=== PATIENT | male | born 1940 | race Caucasian/White ===

== ENCOUNTER 2017-11-08 08:49 | Observation (INO) | payer MEDICARE, OTHER ==
[2017-11-08] MEDS ORDERED: ceFAZolin 2 GM PREMIX (*) 2 GM/50 ML BAG IVPB ONE ×2 (10:00→12:30)
[2017-11-08] MEDS ORDERED: ceFAZolin VIAL 1 GM in NS *SYRINGE * * 10 ML ONE (10:00)
[2017-11-08] MEDS ORDERED: Diazepam TAB(*) 5 MG ONE (10:03)
[2017-11-08] MEDS ORDERED: Lidocaine 1% INJ* 10 MG/ML 30 ML SDV ONE (10:17)
[2017-11-08] MEDS ORDERED: Flumazenil* 0.1 MG/ML 5 ML MDV ONE (10:17)
[2017-11-08] MEDS ORDERED: Naloxone* 0.4 MG/ML 1 ML VIAL ONE (10:17)
[2017-11-08] MEDS ORDERED: Midazolam* 1 MG/ML 5 ML VIAL (5 MG) ONE (10:17)
[2017-11-08] MEDS ORDERED: fentaNYL* 50 MCG/ML 2 ML VIAL (100 MCG VIAL) ONE (10:17)
[2017-11-08] MEDS ORDERED: oxyCODONE/Acetamin 5/325 MG* TAB PO PRN (11:26)
[2017-11-08] MEDS ORDERED: ceFAZolin 1 GM VIAL(*) 1 GM in NS 0.9% 50 ML* 50 ML IVPB SCH (12:00)
[2017-11-08] MEDS ORDERED: ceFAZolin 1 GM VIAL(*) 2 GM in NS 0.9% 100 ML* 100 ML IVPB ONE (12:04)
--- NOTE | 2017-11-08 14:16 | RAD ---
INDICATION: Status post device implant. COMPARISON: Comparison is made with a prior study from October 07, 2017. TECHNIQUE: A portable view of the chest was obtained. FINDINGS: The patient is status post placement of a transvenous pacemaker. The heart is within normal limits in size. Mediastinal contours appear normal. The lungs are clear. No pleural effusion or pneumothorax is seen. IMPRESSION: STATUS POST TRANSVENOUS CARDIAC PACEMAKER PLACEMENT, NO EVIDENCE FOR ACUTE FINDING.
[2017-11-08] MEDS: Acetaminophen TAB* 325 MG PO PRN (19:00)
[2017-11-08] MEDS: ceFAZolin 1 GM in Dextrose (*) 1 GM/50 ML BAG IVPB SCH (20:22)
--- NOTE | 2017-11-09 02:05 | OP ---
CC: Dr. Vidal Walker * DATE OF OPERATION: 11/08/17 - ROOM #441 DATE OF : 36 SURGEON: Yevgeniy Ulloa MD ANESTHESIA: Local anesthesia with conscious sedation. PRE-OP DIAGNOSIS: Atrial fibrillation, tachybrady syndrome. POST-OP DIAGNOSIS: Atrial fibrillation, tachybrady syndrome. OPERATIVE PROCEDURE: Single chamber pacemaker implantation. ESTIMATED BLOOD LOSS: Nil. COMPLICATIONS: None. INDICATIONS: The patient is a 77-year-old gentleman with a history of chronic atrial fibrillation. The patient has had poor heart rate control and has been intolerant of beta-blockers and calcium channel blockers in the past. Permanent pacemaker was recommended for further therapies for heart rate control. DESCRIPTION OF PROCEDURE: The patient was brought to the operating room in a fasting state. Informed consent had been obtained prior to the procedure. All labs had been reviewed. The patient was placed supine on the procedure table. His left deltopectoral was cleaned and draped in the usual fashion. 1% lidocaine was used for local anesthesia. The left axillary vein was entered by a modified Seldinger technique and a guidewire was placed. A 3 cm incision was made in the pectoral fascia and blunt dissection was carried to the pectoral fascia. A small pocket was fashioned for the pacemaker. Over the guidewire, a 7-Malagasy sheath introducer was placed through which a right ventricular lead was advanced to the RV apex. The right ventricular lead is a Medtronic model 5076, serial #[id number]. It had an R-wave sensitivity of 5, impedance 717 ohms , threshold 0.7 volts at 0.5 milliseconds. The ventricular lead was then sutured to the pectoral fascia using 0 silk. The pocket was flushed with antibiotic infused normal saline. A generator was attached to the ventricular lead. The generator is a Medtronic model A3SR01, serial #[id number]. The device was placed into the pocket. The surgical incision was closed in 3 layers. The patient was returned to holding area in stable condition. [id number]/[facility] #: [id number] MTDMichele
[2017-11-09] MEDS: Acetaminophen TAB* 325 MG PO PRN (02:58)
[2017-11-09] MEDS: ceFAZolin 1 GM in Dextrose (*) 1 GM/50 ML BAG IVPB SCH (04:28)
[2017-11-09] MEDS ORDERED: Omeprazole CAP* 20 MG PO SCH (07:30)
[2017-11-09 08:11] VITALS: BP 125/78
[2017-11-09] MEDS ORDERED: Aspirin EC Low Dose* 81 MG TAB.EC PO SCH (08:30)
[2017-11-09] MEDS ORDERED: Metoprolol Succinate XL TAB* 25 MG PO SCH (09:00)
[2017-11-09] MEDS ORDERED: Docusate CAP* 100 MG PO SCH (09:00)
--- NOTE | 2017-11-09 09:21 | RAD ---
HISTORY: Status post device implant COMPARISONS: November 08, 2017, CT of the chest dated October 07, 2017 VIEWS: 4: Frontal dual-energy and lateral views of the chest. FINDINGS: CARDIOMEDIASTINAL SILHOUETTE: The cardiomediastinal silhouette is normal. HARRIET: The harriet are normal. PLEURA: The costophrenic angles are sharp. No pleural abnormalities are noted. LUNG PARENCHYMA: The lungs are clear. ABDOMEN: The upper abdomen is clear. There is no subphrenic gas. BONES AND SOFT TISSUES: There is stable chronic compression deformity of the thoracic spine OTHER: A left-sided pacemaker is noted. IMPRESSION: NO ACTIVE CARDIOPULMONARY DISEASE.
--- NOTE | 2017-11-09 12:39 | DS ---
CC: Dinah Stahl NP; Dr. Vidal Walker * DATE OF ADMISSION: 11/08/2017. DATE OF DISCHARGE: 11/09/2017. INDICATION FOR ADMISSION: Single chamber pacemaker implantation, atrial fibrillation. HISTORY OF PRESENT ILLNESS: Please see admission history and physical for details of the patient's presentation. The patient has a history of chronic atrial fibrillation with poor heart rate control. Permanent pacemaker was recommended for maximization of medical therapy and other avenues of rate control. The patient was brought in to the hospital. He went to the operating room and had a single chamber pacemaker inserted under conscious sedation. The procedure went without difficulty. The patient was observed overnight. He had no difficulties overnight. This morning the dressing was changed and the incision site looks stable. The patient has no complaints and will be discharged home. The patient had a chest x-ray today which demonstrated normal placement of the single chamber pacemaker. There was no evidence of pneumothorax. His device was interrogated today. It is a single chamber Medtronic pacemaker. It is set at a low rate of 60. It had an R wave sensitivity of 7, impendence 513 ohms, threshold 0.5 volts at 0.4 msec. He is ventricularly paced 8 percent of the time. No other abnormality rhythms detected. DISCHARGE MEDICATIONS: 1. Digoxin 125 mcg 4 days a week. 2. Crestor 5 mg a day. 3. Potassium 20 mEq a day. 4. Toprol XL 25 mg once a day. 5. Aspirin 81 mg a day. 6. Colace 100 mg a day. 7. Vitamin C 500 mg a day. 8. Multiple other supplements. 9. Pantoprazole 40 mg a day. 10. Tylenol 325 as needed. 11. Coumadin as directed. He will restart his Coumadin today. 12. Coenzyme Q10 200 mg a day. 13. Magnesium 400 mg a day. ALLERGIES: No known drug allergies. PHYSICAL EXAMINATION: Vital Signs: Heart rate is 80 beats per minute, blood pressure 130/72, respiratory rate 16, he is afebrile. Lungs: Clear to auscultation. Cardiac exam: S1, S2 without any murmurs, rubs or gallops. Lungs: Clear to auscultation. Extremities: Show no edema. His pacer site is clean, dry and intact. There is no hematoma. There is no erythema. There is no ecchymosis when the dressing was changed. DISPOSITION: The patient will be discharged home. He is to follow-up with me in one week. [id number]/[facility] #: [id number] DAKSHA
[2017-11-09] MEDS ORDERED: Digoxin TAB* 0.125 MG PO SCH (17:00)
== END 2017-11-09 10:41 | disposition home or self-care (01) ==
LOC: CHICATH 08:49 → MEDTELE 11:26
PROVIDERS: ADMIT Specialist; ATTEND Specialist
DX: I48.2 Chronic atrial fibrillation (principal); K21.9 Gastro-esophageal reflux disease without esophagitis; E78.00 Pure hypercholesterolemia, unspecified; Z79.899 Other long term (current) drug therapy; F41.9 Anxiety disorder, unspecified; M10.9 Gout, unspecified; E11.9 Type 2 diabetes mellitus without complications; I49.5 Sick sinus syndrome; Z86.73 Personal history of transient ischemic attack (TIA), and cerebral infarction without residual deficits
CPT/HCPCS: 33207; 71010; 71020; 93005; 99156; 99157; A9270-GY; C1785; C1898; G0378; J0690; J2250; J2310; J3010

== ENCOUNTER 2018-10-11 10:33 | Emergency (ER) | payer MEDICARE, OTHER ==
[2018-10-11] MEDS ORDERED: NS 0.9% 1000 ML*IV.FLUID IV ONE (10:44)
--- NOTE | 2018-10-11 11:02 | ED ---
Complex/Multi-Sys Presentation - HPI Summary HPI Summary: Patient is a 78 y/o M w/ c/o chills, weakness, "pressure" at left chest and confusion/disorientation. Patient's reports that patient was having "convulsive" chills three days ago in the evening. Patient's got him a heating pad which resolved Sx. reports that patient slept a lot the following day and had a decreased appetite. Two days ago in the evening, patient was noted to have chills once more and to be confused/disoriented. The following day (yesterday) patient was reported to have been better. This morning , patient awoke with palor, weakness, and difficulty walking. He was seen at his PCP this morning, who sent him to the ED. Cough, headache, abdominal pain are denied. He denies chest pain but states he has a "pressure" at his left chest. He is also noted to have a red "bump" at the top of his head by his . Patient has pacemaker, states he is in afib constantly. No Hx of HTN is reported, but patient is on BP meds to help control afib. PSHx of prostate removal 20 years ago for cancer. Patient was negative for flu when swabbed at PCP. On triage, pain is denied. Nothing is noted to aggravate/alleviate Sx. Home medications and allergies are reviewed. - History Of Current Complaint Chief Complaint: EDFluSymptoms Time Seen by Provider: 10/11/18 10:44 Hx Obtained From: Patient Onset/Duration: Lasting Days - onset three days ago, Still Present Timing: Constant, Days - three days Severity Currently: None - pain denied Location: Negative Aggravating Factor(s): nothing Alleviating Factor(s): nothing Associated Signs And Symptoms: Positive: Confusion, Other - POSITIVE: chills, weakness, increased sleep, decreased appetite, "pressure" at left chest, "bump" at top of head, palor, difficulty walking. Negative: Headache, Cough, Chest Pain, Abdominal Pain - Allergies/Home Medications Allergies/Adverse Reactions: Allergies Allergy/AdvReac Type Severity Reaction Status Date / Time No Known Allergies Allergy Verified 10/11/18 10:40 Home Medications: Home Medications Docusate CAP* [Colace Cap*] 100 mg PO EVERY OTHER DAY PRN 10/11/18 [History Confirmed 10/11/18] Glucosamine/Chondro Cheung A/C/Mn [Glucosamine Chondroitin C] 2 cap PO DAILY [History Confirmed 10/11/18] Metoprolol Succinate XL TAB* [Toprol XL TAB*] 12.5 mg PO QAM 10/11/18 [History Confirmed 10/11/18] Potassium Chlor TAB* [Klor Con ER TAB*] 20 meq PO DAILY 10/11/18 [History Confirmed 10/11/18] Sildenafil (NF) [Viagra (NF)] 50 mg PO DAILY PRN 10/11/18 [History Confirmed ] Ubidecarenone [Co Q10] 200 mg PO DAILY 10/11/18 [History Confirmed 10/11/18] Warfarin TAB(*) [Coumadin TAB(*)] 2.5 mg PO DAILY 10/11/18 [History Confirmed ] Zinc Amino Acid Chelate [Zinc] 50 mg PO DAILY 10/11/18 [History Confirmed ] PMH/Surg Hx/FS Hx/Imm Hx Endocrine/Hematology History: Reports: Hx Anticoagulant Therapy Denies: Hx Diabetes Cardiovascular History: Reports: Hx Angina, Hx Hypercholesterolemia, Hx Syncope , Other Cardiovascular Problems/Disorders - AFIB Denies: Hx Congestive Heart Failure, Hx Coronary Artery Disease, Hx Hypertension, Hx Myocardial Infarction, Hx Pacemaker/ICD, Hx Valvular Heart Disease Respiratory History: Reports: Hx Pneumonia - x3 Denies: Hx Asthma, Hx Chronic Obstructive Pulmonary Disease (COPD), Other Respiratory Problems/Disorders - DENIES GI History: Reports: Hx Gastroesophageal Reflux Disease, Hx Gastrointestinal Bleed History: Reports: Other Problems/Disorders - prostatectomy Denies: Hx Dialysis, Hx Renal Disease Musculoskeletal History: Reports: Hx Arthritis, Hx Back Problems, Hx Gout - one bout of gout Sensory History: Reports: Hx Contacts or Glasses Denies: Hx Cataracts, Hx Vision Problem, Hx Deafness, Hx Hearing Aid, Hx Hearing Problem Opthamlomology History: Reports: Hx Contacts or Glasses Denies: Hx Cataracts, Hx Vision Problem Neurological History: Reports: 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 prostate cancer - 1995 Hx Chemotherapy: No Hx Radiation Therapy: Yes - VOCAL CHORD POLYPS - Surgical History Surgery Procedure, Year, and Place: PROSTATECTOMY 1995,. TONSILLECTOMY as a child. Vocal cord polyps removed 1980 Hx Anesthesia Reactions: No - Immunization History Date of Tetanus Vaccine: PT STATES UNSURE Date of Influenza Vaccine: NONE Infectious Disease History: No Infectious Disease History: Denies: Traveled Outside the [place] in Last 30 Days - Family History Known Family History: Positive: Cardiac Disease - father: CAD - Social History Alcohol Use: Occasionally Alcohol Amount: 1-2 beers occasionally Hx Substance Use: No Substance Use Type: Reports: None Hx Tobacco Use: No Smoking Status (MU): Never Smoked Tobacco Review of Systems Positive: Chills, Other - POSITIVE: increased sleep, palor, weakness, difficulty walking Positive: Other - left sided chest pressure . Negative: Chest Pain Negative: Cough Positive: Other - POSITIVE: decreased appetite . Negative: Abdominal Pain Positive: Other - POSITIVE: red "bump" at top of head Neurological: Other - POSITIVE: confusion/disorientation Negative: Headache All Other Systems Reviewed And Are Negative: Yes Physical Exam - Summary Physical Exam Summary: Appearance: Well-appearing, Well-nourished, lying in bed comfortably Skin: Warm, dry, no obvious rash Eyes: sclera anicteric, no conjunctival pallor ENT: mucous membranes moist, pharynx appears normal Neck: Supple, nontender Respiratory: Clear to auscultation, no signs of respiratory distress Cardiovascular: Patient has rapid and irregular pulse. No murmurs. Normal distal pulses in tibial and radial bilaterally. Abdomen: Soft, nontender, normal active bowel sounds present Musculoskeletal: Normal, Strength/ROM Intact Neurological: A&Ox3, awake and alert, mentation is normal, speech is fluent and appropriate Psychiatric: affect is normal, does not appear anxious or depressed Triage Information Reviewed: Yes Vital Signs On Initial Exam: Initial Vitals Temp Pulse Resp BP Pulse Ox 99.7 F 109 18 92/51 96 10/11/18 10:37 10/11/18 10:37 10/11/18 10:37 10/11/18 10:37 10/11/18 10:37 Vital Signs Reviewed: Yes Diagnostics - Vital Signs Vital Signs Temp Pulse Resp BP Pulse Ox 10/11/18 10:51 95 11/13/18 10:37 99.7 F 109 18 92/51 96 - Laboratory Result Diagrams: 10/11/18 11:15 10/11/18 11:15 Lab Statement: Any lab studies that have been ordered have been reviewed, and results considered in the medical decision making process. - Radiology CXR Radiology Interpretation Completed By: Radiologist Summary of Radiographic Findings: No evidence for acute disease. This report was reviewed by ED physician. Re-Evaluation - Re-Evaluation First Eval Re-Evaluation Time: 13:50 Complex Multi-Symp Course/Dx Course Of Treatment: Patient is a 78 y/o M w/ c/o chills, weakness, "pressure" at left chest and confusion/disorientation. Patient's reports that patient was having "convulsive" chills three days ago in the evening. Patient's got him a heating pad which resolved Sx. reports that patient slept a lot the following day and had a decreased appetite. Two days ago in the evening, patient was noted to have chills once more and to be confused/disoriented. The following day (yesterday) patient was reported to have been better. This morning , patient awoke with palor, weakness, and difficulty walking. He was seen at his PCP this morning, who sent him to the ED. Cough, headache, abdominal pain are denied. He denies chest pain but states he has a "pressure" at his left chest. Patient has pacemaker, states he is in afib constantly. No Hx of HTN is reported, but patient is on BP meds to help control afib. Patient was negative for flu when swabbed at PCP. On physical exam, patient is noted to have rapid and irregular pulse. During ED course, patient received fluids. UA showed ascorbic acid. Labs showed trop 0.01, Alk phos 148, ALT 78, AST 78, lactic acid 1.6, glucose 121, BUN 28, sodium 134, WBC 5.9. CXR showed no acute disease. Results of labs and tests were discussed with patient, patient agreeable with discharge. Clinically, he does not appear very ill. His workup has not disclose any evidence of severe infection or sepsis. I believe he is safe for discharge at this point with a tentative diagnosis of viral syndrome. - Diagnoses Provider Diagnoses: Viral syndrome Discharge - Sign-Out/Discharge Documenting (check all that apply): Patient Departure - discharge - Discharge Plan Condition: Stable Disposition: HOME Patient Education Materials: Viral Syndrome (ED) Referrals: Marco Antonio Webster MD [Primary Care Provider] - 2 Days (if still having symptoms ) - Billing Disposition and Condition Condition: STABLE Disposition: Home - Attestation Statements Document Initiated by Coreyibe: Yes Documenting Scribe: Hung Lange Provider For Whom Venu is Documenting (Include Credential): Naeem Crenshaw MD Scribe Attestation: Hung Velázquez , scribed for Naeem Crenshaw MD on 10/12/18 at 1136. Scribe Documentation Reviewed: Yes Provider Attestation: The documentation as recorded by the Hung beltrán accurately reflects the service I personally performed and the decisions made by me, Naeem Crenshaw MD
[2018-10-11 11:34] LABS: Hematocrit 42 % (42-52); Hemoglobin 14.3 g/dl (14.0-18.0); Mean Corpuscular HGB Conc 34 g/dl (31-36); Mean Corpuscular Hemoglobin 31 pg (27-31); Mean Corpuscular Volume 93 fL (80-94); Mean Platelet Volume 8.5 fL (7.4-10.4); Platelet Count 139 10^3/ul (150-450); Red Blood Count 4.58 10^6/ul (4.00-5.40); Red Cell Distribution Width 14 % (10.5-15); White Blood Count 5.9 10^3/ul (3.5-10.8)
[2018-10-11 11:36] LABS: INR 1.42 (0.77-1.02)
[2018-10-11 12:22] LABS: EGFR Non-African American 63.7 (>60)
[2018-10-11 12:27] LABS: ABS Basophils 0.1 10^3/ul (0-0.2); ABS Eosinophils 0 10^3/ul (0-0.6); ABS Lymphocytes 1.3 10^3/ul (1.0-4.8); ABS Monocytes 0.5 10^3/ul (0-0.8); ABS Neutrophils 4.1 10^3/ul (1.5-7.7)
[2018-10-11 12:29] LABS: Monocytes % 3 % (0-7)
[2018-10-11 13:42] LABS: Urine Appearance Clear; Urine Blood Negative (Negative); Urine Color Yellow; Urine Ketones Negative (Negative); Urine Protein Negative (Negative); Urine Specific Gravity 1.016 (1.010-1.030); Urine Urobilinogen Negative (Negative)
[2018-10-11 15:58] VITALS: BP 128/80
== END 2018-10-11 14:30 | disposition home or self-care (01) ==
LOC: ED 10:33
DX: B34.9 Viral infection, unspecified (principal); E78.00 Pure hypercholesterolemia, unspecified; K21.9 Gastro-esophageal reflux disease without esophagitis; Z85.819 Personal history of malignant neoplasm of unspecified site of lip, oral cavity, and pharynx; Z85.46 Personal history of malignant neoplasm of prostate; F32.9 Major depressive disorder, single episode, unspecified; I48.91 Unspecified atrial fibrillation
CPT/HCPCS: 36415; 71045; 80053; 81003; 83605; 84484; 85025; 85060; 85610; 85730; 87040; 96361; 99283

== ENCOUNTER 2018-10-12 15:51 | Inpatient (IN) | payer MEDICARE, OTHER ==
--- NOTE | 2018-10-12 16:51 | ED ---
Complex/Multi-Sys Presentation - HPI Summary HPI Summary: The pt is a n 78 y/o male accompanied by his presenting to [facility] c/o a fall yesterday. As per the , he fell in the bathroom at 2330 hrs landing on his L side. The pt is amnesic about the event. He notes chills, weakness, night sweats, and incontinence but denies abd pain, CP, and cough. A recent flu test returned negative. The pt was seen 1 day ago at [facility] and discharged with a dx of viral syndrome. - History Of Current Complaint Chief Complaint: EDGeneral Time Seen by Provider: 10/12/18 16:31 Hx Obtained From: Patient, Family/Field Service Representative - Onset/Duration: Sudden Onset - Fall- 23:30 hrs yesterday Related History: Similar Episode/Diagnosed As: - 10/11/2018 at [facility] - Allergies/Home Medications Allergies/Adverse Reactions: Allergies Allergy/AdvReac Type Severity Reaction Status Date / Time No Known Allergies Allergy Verified 10/12/18 15:59 PMH/Surg Hx/FS Hx/Imm Hx Previously Healthy: No Endocrine/Hematology History: Reports: Hx Anticoagulant Therapy Denies: Hx Diabetes Cardiovascular History: Reports: Hx Angina, Hx Hypercholesterolemia, Hx Syncope , Other Cardiovascular Problems/Disorders - AFIB Denies: Hx Congestive Heart Failure, Hx Coronary Artery Disease, Hx Hypertension, Hx Myocardial Infarction, Hx Pacemaker/ICD, Hx Valvular Heart Disease Respiratory History: Reports: Hx Pneumonia - x3 Denies: Hx Asthma, Hx Chronic Obstructive Pulmonary Disease (COPD), Other Respiratory Problems/Disorders - DENIES GI History: Reports: Hx Gastroesophageal Reflux Disease, Hx Gastrointestinal Bleed History: Reports: Other Problems/Disorders - prostatectomy Denies: Hx Dialysis, Hx Renal Disease Musculoskeletal History: Reports: Hx Arthritis, Hx Back Problems, Hx Gout - one bout of gout Sensory History: Reports: Hx Contacts or Glasses Denies: Hx Cataracts, Hx Vision Problem, Hx Deafness, Hx Hearing Aid, Hx Hearing Problem Opthamlomology History: Reports: Hx Contacts or Glasses Denies: Hx Cataracts, Hx Vision Problem Neurological History: Reports: 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 prostate cancer - 1995 Hx Chemotherapy: No Hx Radiation Therapy: Yes - VOCAL CHORD POLYPS - Surgical History Surgery Procedure, Year, and Place: PROSTATECTOMY 1995,. TONSILLECTOMY as a child. Vocal cord polyps removed 1980 Hx Anesthesia Reactions: No - Immunization History Date of Tetanus Vaccine: PT STATES UNSURE Date of Influenza Vaccine: NONE Infectious Disease History: No Infectious Disease History: Denies: Traveled Outside the [place] in Last 30 Days - Family History Known Family History: Positive: Cardiac Disease - father: CAD - Social History Occupation: Retired Lives: With Family Alcohol Use: Occasionally Alcohol Amount: 1-2 beers occasionally Hx Substance Use: No Substance Use Type: Reports: None Hx Tobacco Use: No Smoking Status (MU): Never Smoked Tobacco Review of Systems Constitutional: Other - Positive: Fall, amnesia about the fall Positive: Chills, Skin Diaphoresis Negative: Chest Pain Negative: Cough Negative: Abdominal Pain Positive: incontinence Positive: Weakness All Other Systems Reviewed And Are Negative: Yes Physical Exam - Summary Physical Exam Summary: Appearance: Well-appearing, Well-nourished, lying in bed comfortable Skin: Warm, dry mucous membranes, no obvious rash Eyes: sclera anicteric, no conjunctival pallor ENT: mucous membranes moist Neck: deferred Respiratory:Wheezing in L upper back and shoulder , No signs of respiratory distress Cardiovascular: Fast heart rate , Appears well perfused, pulses are nml Abdomen: deferred Musculoskeletal: Moving all 4 extremities without obvious discomfort, No edema Neurological: Awake and alert, mentation is normal, speech is fluent and appropriate Psychiatric: affect is normal, does not appear anxious or depressed GCS: 15 Triage Information Reviewed: Yes Vital Signs On Initial Exam: Initial Vitals Temp Pulse Resp BP Pulse Ox 99.2 F 88 16 135/76 95 10/12/18 15:54 10/12/18 15:54 10/12/18 15:54 10/12/18 15:54 10/12/18 15:54 Vital Signs Reviewed: Yes Procedures - Lumbar Puncture Midline Position: Lateral Decubitus Aseptic Technique: Local Anesthesia Anesthesia Used: 1.0% Lido Spinal Needle Used: 22 Gauge Lumbar Puncture Note: Had to move up one IS to L3-4, then able to get CSF flow Diagnostics - Vital Signs Vital Signs Temp Pulse Resp BP Pulse Ox 10/12/18 16:36 104 30 96 10/12/18 16:34 91 12 137/92 95 10/12/18 15:54 99.2 F 88 16 135/76 95 - Laboratory Result Diagrams: 10/14/18 05:16 10/14/18 05:16 Lab Statement: Any lab studies that have been ordered have been reviewed, and results considered in the medical decision making process. - CT Brain CT CT Interpretation Completed By: Radiologist - IMPRESSION:No acute intracranial pathology. The ED physician reviewed this radiology report. Complex Multi-Symp Course/Dx Course Of Treatment: An 78 year-old M presents to the ED with a CC of a fall in the bathroom 1 day ago, landing on his L side. He notes chills, weakness, night sweats, and incontinence but denies abd pain, CP, and cough. The pt had just been discharged yesterday with a dx of viral syndrome. A physical exam revealed dry mucous membranes, rapid heart rate, no edema and some wheezing in L upper back and shoulder. A brain CT is unremarkable. In the ED course, the pt was given Acetaminophen 975 mg, N.s 0.9% 1000 ml IV, and Ceftriaxone in 100 ml N.s 0.9 % IV which improved the symptoms. I performed a spinal tap and discussed the care of the pt with the hospitalist who agreed to admit. Allergies noted. - Diagnoses Provider Diagnoses: Altered mental status, Fever - Physician Notifications Discussed Care Of Patient With: Amadou ROSE Time Discussed With Above Provider: 19:30 Instructed by Provider To: Admit As Inpatient Discharge - Sign-Out/Discharge Documenting (check all that apply): Patient Departure - DC - Discharge Plan Condition: Guarded Disposition: ADMITTED TO [facility] - Billing Disposition and Condition Condition: GUARDED Disposition: Admitted to [facility] - Attestation Statements Document Initiated by Scribe: Yes Documenting Scribe: Malaika Ansari Provider For Whom Venu is Documenting (Include Credential): Dr. Naeem Crenshaw MD Scribe Attestation: Malaika Velázquez scribed for Dr. Naeem Crenshaw MD on 10/14/18 at 2301. Scribe Documentation Reviewed: Yes Provider Attestation: The documentation as recorded by the scribe, Malaika Ansari accurately reflects the service I personally performed and the decisions made by me, Dr. Naeem Crenshaw MD
[2018-10-12] MEDS ORDERED: NS 0.9% 1000 ML*IV.FLUID IV ONE (16:53)
[2018-10-12 17:27] LABS: Urine Appearance Cloudy; Urine Blood Negative (Negative); Urine Color Yellow; Urine Ketones Negative (Negative); Urine Protein Negative (Negative); Urine Specific Gravity 1.025 (1.010-1.030); Urine Urobilinogen Negative (Negative)
[2018-10-12 17:39] LABS: ABS Basophils 0.1 10^3/ul (0-0.2); ABS Eosinophils 0 10^3/ul (0-0.6); ABS Lymphocytes 2.3 10^3/ul (1.0-4.8); ABS Monocytes 0.5 10^3/ul (0-0.8); ABS Neutrophils 4.1 10^3/ul (1.5-7.7); ABS Nucleated RBC 0 10^3/ul; Eosinophil % 0.2 % (0-6); Hematocrit 44 % (42-52); Hemoglobin 14.7 g/dl (14.0-18.0); Lymphocyte % 32.2 % (25-47); Mean Corpuscular HGB Conc 33 g/dl (31-36); Mean Corpuscular Hemoglobin 31 pg (27-31); Mean Corpuscular Volume 94 fL (80-94); Mean Platelet Volume 9.1 fL (7.4-10.4); Nucleated Red Blood Cells % 0.1; Platelet Count 125 10^3/ul (150-450); Red Blood Count 4.69 10^6/ul (4.00-5.40); Red Cell Distribution Width 14 % (10.5-15); White Blood Count 7.1 10^3/ul (3.5-10.8)
[2018-10-12 17:47] LABS: INR 1.38 (0.77-1.02)
[2018-10-12 17:58] LABS: EGFR Non-African American 68.7 (>60)
[2018-10-12] MEDS ORDERED: cefTRIAXone(*) 1 GM in NS 0.9% 50 ML* 50 ML IVPB ONE (18:02)
[2018-10-12] MEDS ORDERED: Acetaminophen TAB* 325 MG PO ONE (18:02)
[2018-10-12] MEDS ORDERED: Lidocaine 2% 10 ML* VIAL INJ ONE (18:34)
[2018-10-12] MEDS ORDERED: Lidocaine 2% PF * 5 ML VIAL ONE (18:39)
[2018-10-12] MEDS ORDERED: Lidocaine 1% INJ* 10 MG/ML 30 ML SDV ONE (18:40)
[2018-10-12 19:16] LABS: Body Fluid Source Cerebral Spinal
[2018-10-12] MEDS ORDERED: Vancomycin(*) 1,000 MG in NS 0.9% 250 ML* 250 ML IVPB ONE (19:42)
[2018-10-12] MEDS ORDERED: NS 0.9% 1000 ML* 1,000 ML IV SCH ×2 (19:45→23:30)
[2018-10-12] MEDS ORDERED: cefTRIAXone(*) 2 GM in NS 0.9% 100 ML* 100 ML IVPB SCH ×2 (20:00→21:00)
[2018-10-12] MEDS ORDERED: Vancomycin(*) 1,500 MG in NS 0.9% 250 ML* 250 ML IVPB ONE (20:15)
[2018-10-12] MEDS ORDERED: ACYCLOVIR IVPB SCH (20:30)
[2018-10-12] MEDS ORDERED: NS 0.9% IVPB SCH (20:30)
[2018-10-12] MEDS: Acyclovir IV(*) 800 MG in NS 0.9% 250 ML* 250 ML IVPB SCH (21:43)
[2018-10-12] MEDS ORDERED: Heparin VIAL(*) 5000 UNITS/ML VIAL (FIVE THOUSAND) SUBCUT SCH (22:00)
[2018-10-12] MEDS ORDERED: Warfarin TAB(*) 2.5 MG PO SCH (22:30)
[2018-10-12] MEDS: DOXYcycline IV* 100 MG in NS 0.9% 250 ML* 250 ML IVPB SCH (22:32)
[2018-10-12] MEDS ORDERED: NS 0.9% 500 ML* 500 ML IV ONE (23:32)
--- NOTE | 2018-10-13 00:16 | HP ---
AMENDED REPORT NOW INCLUDES DESIGNATED COSIGNER CC: Dr. Webster; Dr. Tomlinson. * HISTORY AND PHYSICAL: DATE OF ADMISSION: 10/12/18 PRIMARY CARE PROVIDER: Dr. Webster. ATTENDING PROVIDER: Dr. Roman * (DICTATED BY RICHARD REARDON NP) CHIEF COMPLAINT: 1. Fever. 2. Altered mental status. HISTORY OF PRESENT ILLNESS: Mr. Milligan is an 78-year-old male patient. He has history of atrial fibrillation, history of prostate cancer, transient global amnesia, GERD, and a history of subarachnoid hemorrhage in the past. He comes in to our emergency department today and he was here yesterday. He cannot really give much of the history because he cannot remember, but apparently since last week the patient has not been feeling well. He has been feeling fatigued, weak. His biggest complaint is that he feels weak and that he is tired. There has been pretty much every night since Wednesday. He has been having chills, shaking rigors. No loss of consciousness. No coughing was reported. No vomiting or diarrhea. No chest pain. There has been no reports of abdominal pain. No headaches or there has not been any reports of neck pain or neck stiffness. The patient states that there has not been any change in medications. He has been having a tough time with just increasing fatigue and weakness to the point where yesterday, he finally went and saw his primary, but his primary saw how weak he was and that he needed help with a walker to get back into the car and his primary knew that this was not his baseline, they so them sent him to the ER. He came to the ER, he was evaluated. There was no obvious source of infection noted and he was sent home. Last night, he had an episode where he became weak, disoriented. He became weak, fatigued. His legs had given out on him and he had fallen. The had heard a crash in the bedroom. She got him up, got him back into the room, but today he was still weak requiring significant amount of assistance to help him. He has been having fever and they decided to come back in to the ER because he was not getting any better. There has been no reports of rashes. No reports of cold sores. There has been again no focality of infection reported and there has been no progression of weakness. He just states he generally feels fatigued and was tired. There has been intermittent episodes of confusions. He came in to the ED today. He was evaluated. He was noted again to have a fever. He was also noted to not have an obvious source of infection and he ultimately underwent spinal tap and we were asked to evaluate for admission. PAST MEDICAL HISTORY: Significant for: 1. AFib. 2. Prostate cancer. 3. TGA. 4. GERD. 5. Subarachnoid hemorrhage. PAST SURGICAL HISTORY: He has had pacemaker placement and prostatectomy. MEDICATIONS: Home meds include: 1. Zinc amino acid 50 mg p.o. daily. 2. Warfarin 2.5 mg daily. 3. CoQ10 200 mg daily. 4. Viagra 50 mg p.o. daily as needed. 5. Crestor 5 mg daily. 6. Potassium chloride 20 mEq p.o. daily. 7. Protonix 40 mg p.o. q.p.m. 8. Metoprolol succinate 12.5 mg p.o. q.a.m. 9. Glucosamine chondroitin 2 capsules p.o. daily. 10. Colace 100 mg p.o. every other day as needed. 11. Digoxin 0.125 mg p.o. 4 days a week. 12. B12 1000 mcg p.o. daily. 13. Vitamin D 1000 units p.o. daily with meal. 14. Aspirin 81 mg daily. 15. Vitamin C 500 mg p.o. daily. ALLERGIES TO MEDICATIONS: Include no known drug allergies. FAMILY HISTORY: Mother had a history of COPD. Father had a history of cancer. SOCIAL HISTORY: He does not smoke. He occasionally drinks beer. Surrogate decision maker is daughter, Griselda. REVIEW OF SYSTEMS: There is a documented fever. He denies having any significant weight change. Denies having any double vision. There is no ear discharge. There is no rhinorrhea. No sore throat. No thyroid enlargement. Denied having any chest discomfort. There was no orthopnea. There was no nocturnal dyspnea. Again, no abdominal pain. No vomiting or diarrhea was reported. No dysuria, no frequency. No seizure, no loss of consciousness. No pruritus and no skin ulcerations. Review of 14 systems completed, all others negative. PHYSICAL EXAMINATION GENERAL: At this time, Mr. Milligan is an 78-year-old male patient, who appears to be well nourished, well developed. He is sitting in the ED stretcher. He does not appear to be in any acute distress. VITAL SIGNS: Blood pressure 137/92, pulse 97, respirations 20, O2 sat 93%, temperature 102.9. HEENT: Head: Atraumatic and normocephalic. Eyes: EOMs are intact. Sclerae anicteric and not pale. Throat: Oral mucosa appears to be dry. No oropharyngeal erythema. NECK: Supple. There was negative Kernig or Brudzinksi sign. LUNGS: Clear to auscultation bilaterally. There were no wheezes, rales, or rhonchi. HEART: Sounds S1, S2. Irregularly irregular rate and rhythm. No murmurs, rubs , or gallops. ABDOMEN: Soft. It was flat. It was nontender. Bowel sounds were present. EXTREMITIES: Pulses were 2+ throughout. He is able to move all 4 extremities with 5/5 strength. NEUROLOGIC: He is awake. He is alert. He knows the month, time, and year. Heel- to-rodgers intact bilaterally. Dpiybk-xs-ecjg intact bilaterally. His reflexes were not hyperreflexive. The handgrips were equal. He did have 5/5 plantar and dorsiflexion and extension and flexion at the knee. He had no gross focal deficits. No facial drooping. Tongue is midline. SKIN: Intact. There were no rashes or sores noted. LABORATORY DATA/DIAGNOSTIC STUDIES: WBC of 7.1, RBC of 4.69, hemoglobin of 14.7, hematocrit of 44, platelet count of 125. INR 1.38. PTT of 31.0. Sodium 138, potassium 4, chloride 105, bicarb 25, BUN 26, creatinine 1.04, glucose 108. Lactic 1.8. Calcium 8.9. Total bili 0.6, his AST was 89, ALT 90, alk phos 154. Troponin 0.01. Albumin of 3.4. Urine was negative. CSF glucose 63 , CSF total protein 59. I do have cell count pending. Toxicology, digoxin level is pending. Serology negative for flu. He had a brain CT obtained today that showed no acute intracranial pathology. Chest x-ray showed no evidence for acute disease. ASSESSMENT AND PLAN: Mr. Milligan is an 78-year-old male patient coming in to the ED today with complaints of weakness, fever. We were asked to evaluate for admission. He will be admitted under inpatient status for: 1. Fever, weakness. Again, I am concerned that he may have an underlying infection. He does have SIRS criteria with tachycardia and in addition to this , has elevated temperature. Spinal fluid is pending. I did send off a tick- borne illness panel and I also send off acute hepatitis panel given the elevated LFTs. I also sent off an encephalitis panel as well and we will await the cultures and Gram stain from the patient's CSF. I do have a call to Dr. Tomlinson to help us. I will place him on acyclovir, Rocephin, and vancomycin until we have further reports back from his CSF fluid. 2. Atrial fibrillation. Continue his meds as prescribed. His INR is subtherapeutic of 1.3. I am not going to bridge him though. At this point, I will discontinue his Coumadin. We will monitor this. 3. Prostate cancer. Follow up with PCP. 4. Transient global amnesia. Not an active issue currently. 5. Gastroesophageal reflux disease. Continue PPI therapy. 6. History of subarachnoid hemorrhage. Not an active issue. 7. Code status. He is a DNR. 8. Fluids, electrolytes, and nutrition. He can have a regular diet. TIME SPENT: On admission was 60 minutes, greater than half the time was spent face- to-face with the patient obtaining my history and physical; other half time was spent going over the plan of care with the patient and implementing the plan of care. I did discuss the plan of care with my attending, Dr. Roman, she is in agreement. RICHARD REARDON, TOM [id number]/CPS #: [id number] DAKSHA
[2018-10-13] MEDS ORDERED: Furosemide IV* 10 MG/ML VIAL (40 MG) ONE (01:50)
[2018-10-13] MEDS ORDERED: Furosemide IV* 10 MG/ML VIAL (40 MG) IV ONE (01:54)
--- NOTE | 2018-10-13 01:57 | PN ---
Progress Note - Progress Note Date of Service: 10/13/18 Note: Paged for tachypnea and shakes. Afebrile, C/O SOB. Denies CP. No hx of lung disease. On exam, tachypneic with increase in work of breathing. Poor aeration. Expiratory wheeze and rales. CXR: b/L pulmonary edema. Plan Lasix 40 mg IV x 1 Transfer to ICU for high flow and closer observation. Will also get EKG
[2018-10-13] MEDS ORDERED: Digoxin IV* 0.5 MG/2 ML AMP (0.25 MG/ML) IV SLOW PU ONE (02:38)
[2018-10-13] MEDS ORDERED: Diltiazem IV* 5 MG/ML 5 ML VIAL (for loading dose/IV Push) (25 MG) IV SLOW PU ONE (02:39)
[2018-10-13] MEDS ORDERED: Acetaminophen SUPP* 650 MG SUPP ONE (02:42)
[2018-10-13] MEDS ORDERED: Diltiazem IV* 5 MG/ML 5 ML VIAL (for loading dose/IV Push) (25 MG) ONE (02:42)
[2018-10-13] MEDS ORDERED: Diltiazem DRIP* 0 MG/0 ML ADDV.BAG IVPB ONE (02:42)
[2018-10-13] MEDS ORDERED: Diltiazem DRIP* 100 MG in NS 100 ML ADDV.BAG IVPB SCH (03:00)
[2018-10-13 03:14] LABS: ABS Basophils 0.1 10^3/ul (0-0.2); ABS Eosinophils 0 10^3/ul (0-0.6); ABS Lymphocytes 1.8 10^3/ul (1.0-4.8); ABS Monocytes 0.9 10^3/ul (0-0.8); ABS Neutrophils 5.9 10^3/ul (1.5-7.7); ABS Nucleated RBC 0 10^3/ul; Eosinophil % 0.6 % (0-6); Hematocrit 40 % (42-52); Hemoglobin 13.8 g/dl (14.0-18.0); Mean Corpuscular HGB Conc 34 g/dl (31-36); Mean Corpuscular Hemoglobin 32 pg (27-31); Mean Corpuscular Volume 93 fL (80-94); Mean Platelet Volume 9.5 fL (7.4-10.4); Nucleated Red Blood Cells % 0; Platelet Count 200 10^3/ul (150-450); Red Blood Count 4.32 10^6/ul (4.00-5.40); Red Cell Distribution Width 14 % (10.5-15); White Blood Count 8.7 10^3/ul (3.5-10.8)
[2018-10-13 03:30] LABS: EGFR Non-African American 79.2 (>60)
[2018-10-13] MEDS ORDERED: Acetaminophen SUPP* 650 MG SUPP PR PRN (03:30)
[2018-10-13] MEDS ORDERED: Diltiazem IV VIAL* 125 MG in NS 0.9% 100 ML* 100 ML IV SCH (04:00)
[2018-10-13] MEDS: Acyclovir IV(*) 800 MG in NS 0.9% 250 ML* 250 ML IVPB SCH ×3 (04:52→21:44)
[2018-10-13] MEDS ORDERED: Metoprolol Tartrate IV* 1 MG/ML 5 ML VIAL IV PRN (05:09)
[2018-10-13] MEDS: Metoprolol Tartrate IV* 1 MG/ML 5 ML VIAL ONE ×2 (05:18→05:19)
[2018-10-13] MEDS ORDERED: Magnesium Sulfate 2 GM IV* 2 GM/50 ML BAG IVPB ONE (05:19)
[2018-10-13] MEDS ORDERED: Potassium Chlor TAB* 20 MEQ TAB.ER PO ONE (05:19)
[2018-10-13] MEDS: Acetaminophen TAB* 325 MG PO PRN ×3 (05:21→16:57)
[2018-10-13] MEDS ORDERED: Cefepime 2 GM in Dextrose(*) 2 GM/50 ML BAG IV SCH (06:00)
[2018-10-13] MEDS ORDERED: Magnesium Sulfate IV* 3 GM in NS 0.9% 100 ML* 100 ML IVPB ONE (06:00)
[2018-10-13] MEDS ORDERED: Vancomycin per Pharmacy* NOTE FOLLOW UP SCH (06:00)
[2018-10-13] MEDS ORDERED: Vancomycin(*) 0 MG in NS 0.9% 250 ML* 250 ML IVPB SCH (06:00)
[2018-10-13] MEDS ORDERED: Potassium Chlor TAB* 20 MEQ TAB.ER PO SCH (09:00)
[2018-10-13] MEDS: Metoprolol Succinate XL TAB* 25 MG PO SCH (09:27)
[2018-10-13] MEDS: Aspirin EC TAB* 81 MG TAB.EC PO SCH (09:27)
--- NOTE | 2018-10-13 09:29 | PN ---
Date of Service: 10/13/18 Critical Care Services: 78M with gerd, h/o SAH, prostate CA, transient global amnesia?, Afib presents with fever AMS. Was in rapid afib. Transferred to ICU. 10/13: Afib now rate controlled. Markedly hyperthermic. Vital Signs: Temp Pulse Resp BP SpO2 FiO2 105.4 F 96 25 114/71 95 30 10/13/18 06:11 10/13/18 07:01 10/13/18 07:01 10/13/18 07:00 10/13/18 07:01 10/13 02:44 Physical Exam: Gen: HEENT: Lungs: Cardiac: Abdomen: Extremities: Neuro: Fluid Balance (Past 24 Hours): I= O= Net Intake & Output 10/11/18 10/12/18 10/13/18 10/14/18 06:59 06:59 06:59 06:59 Intake Total 170 Output Total 2425 Balance -2255 Weight 86.2 kg Intake: IV Fluids 50 NS (0.9%) 0 Oral 120 Output: [place] 2425 Other: Estimated Void Large # Bowel Movements 1 Estimated Stool Amount Small # Voids 1 Labs: Laboratory Results - last 24 hr 10/12/18 10/12/18 10/12/18 17:16 17:16 17:16 WBC 7.1 RBC 4.69 Hgb 14.7 Hct 44 MCV 94 MCH 31 MCHC 33 RDW 14 Plt Count 125 L MPV 9.1 Neut % (Auto) 58.7 Lymph % (Auto) 32.2 [place] % (Auto) 7.6 H Eos % (Auto) 0.2 Baso % (Auto) 1.3 Absolute Neuts (auto) 4.1 Absolute Lymphs (auto) 2.3 Absolute Monos (auto) 0.5 Absolute Eos (auto) 0 Absolute Basos (auto) 0.1 Absolute Nucleated RBC 0 Nucleated RBC % 0.1 INR (Anticoag Therapy) 1.38 H APTT 31.0 Sodium 138 Potassium 4.0 Chloride 105 Carbon Dioxide 25 Anion Gap 8 BUN 26 H Creatinine 1.04 Est GFR ( Amer) 83.1 Est GFR (Non-Af Amer) 68.7 BUN/Creatinine Ratio 25.0 H Glucose 108 H Lactic Acid Calcium 8.9 Magnesium Total Bilirubin 0.60 AST 89 H ALT 90 H Alkaline Phosphatase 154 H Ammonia Troponin I 0.01 B-Natriuretic Peptide Total Protein 6.6 Albumin 3.4 Globulin 3.2 Albumin/Globulin Ratio 1.1 Urine Color Urine Appearance Urine pH Ur Specific [place] Urine Protein Urine Ketones Urine Blood Urine Nitrate Urine Bilirubin Urine Urobilinogen Ur Leukocyte Esterase Urine Glucose Urine Ascorbic Acid Fluid Source Fluid Volume Fluid Color Fluid Appearance Fluid WBC Fluid RBC Fluid Tot Cell Count Fluid Neutrophils Fluid Lymphocytes Fluid Monocytes CSF Cell Count Tube # CSF Glucose CSF Total Protein Digoxin 0.4 L Influenza A (Rapid) Influenza B (Rapid) 10/12/18 10/12/18 10/12/18 17:16 17:16 17:17 WBC RBC Hgb Hct MCV MCH MCHC RDW Plt Count MPV Neut % (Auto) Lymph % (Auto) [place] % (Auto) Eos % (Auto) Baso % (Auto) Absolute Neuts (auto) Absolute Lymphs (auto) Absolute Monos (auto) Absolute Eos (auto) Absolute Basos (auto) Absolute Nucleated RBC Nucleated RBC % INR (Anticoag Therapy) APTT Sodium Potassium Chloride Carbon Dioxide Anion Gap BUN Creatinine Est GFR ( Amer) Est GFR (Non-Af Amer) BUN/Creatinine Ratio Glucose Lactic Acid 1.8 Calcium Magnesium Total Bilirubin AST ALT Alkaline Phosphatase Ammonia Troponin I B-Natriuretic Peptide 207 H Total Protein Albumin Globulin Albumin/Globulin Ratio Urine Color Yellow Urine Appearance Cloudy Urine pH 5.0 Ur Specific [place] 1.025 Urine Protein Negative Urine Ketones Negative Urine Blood Negative Urine Nitrate Negative Urine Bilirubin Negative Urine Urobilinogen Negative Ur Leukocyte Esterase Negative Urine Glucose Negative Urine Ascorbic Acid * A Fluid Source Fluid Volume Fluid Color Fluid Appearance Fluid WBC Fluid RBC Fluid Tot Cell Count Fluid Neutrophils Fluid Lymphocytes Fluid Monocytes CSF Cell Count Tube # CSF Glucose CSF Total Protein Digoxin Influenza A (Rapid) Influenza B (Rapid) 10/12/18 10/12/18 10/12/18 17:41 18:50 18:50 WBC RBC Hgb Hct MCV MCH MCHC RDW Plt Count MPV Neut % (Auto) Lymph % (Auto) [place] % (Auto) Eos % (Auto) Baso % (Auto) Absolute Neuts (auto) Absolute Lymphs (auto) Absolute Monos (auto) Absolute Eos (auto) Absolute Basos (auto) Absolute Nucleated RBC Nucleated RBC % INR (Anticoag Therapy) APTT Sodium Potassium Chloride Carbon Dioxide Anion Gap BUN Creatinine Est GFR ( Amer) Est GFR (Non-Af Amer) BUN/Creatinine Ratio Glucose Lactic Acid Calcium Magnesium Total Bilirubin AST ALT Alkaline Phosphatase Ammonia Troponin I B-Natriuretic Peptide Total Protein Albumin Globulin Albumin/Globulin Ratio Urine Color Urine Appearance Urine pH Ur Specific [place] Urine Protein Urine Ketones Urine Blood Urine Nitrate Urine Bilirubin Urine Urobilinogen Ur Leukocyte Esterase Urine Glucose Urine Ascorbic Acid Fluid Source Cerebral spinal Fluid Volume 0.5 Fluid Color Colorless Fluid Appearance Clear Fluid WBC 3 Fluid RBC 4 Fluid Tot Cell Count 3 Fluid Neutrophils 33 Fluid Lymphocytes 33 Fluid Monocytes 33 CSF Cell Count Tube # 4 CSF Glucose 63 CSF Total Protein 59 H Digoxin Influenza A (Rapid) Negative Influenza B (Rapid) Negative 10/12/18 10/13/18 10/13/18 22:17 02:54 02:54 WBC 8.7 RBC 4.32 Hgb 13.8 L Hct 40 L MCV 93 MCH 32 H MCHC 34 RDW 14 Plt Count 200 MPV 9.5 Neut % (Auto) 67.7 Lymph % (Auto) 21.0 L [place] % (Auto) 10.0 H Eos % (Auto) 0.6 Baso % (Auto) 0.7 Absolute Neuts (auto) 5.9 Absolute Lymphs (auto) 1.8 Absolute Monos (auto) 0.9 H Absolute Eos (auto) 0 Absolute Basos (auto) 0.1 Absolute Nucleated RBC 0 Nucleated RBC % 0 INR (Anticoag Therapy) APTT Sodium 137 Potassium TNP Chloride 105 Carbon Dioxide 21 L Anion Gap 11 BUN 21 Creatinine 0.92 Est GFR ( Amer) 95.8 Est GFR (Non-Af Amer) 79.2 BUN/Creatinine Ratio 22.8 H Glucose 114 H Lactic Acid 2.1 H* Calcium 7.7 L Magnesium TNP Total Bilirubin AST ALT Alkaline Phosphatase Ammonia Troponin I 0.03 B-Natriuretic Peptide Total Protein Albumin Globulin Albumin/Globulin Ratio Urine Color Urine Appearance Urine pH Ur Specific [place] Urine Protein Urine Ketones Urine Blood Urine Nitrate Urine Bilirubin Urine Urobilinogen Ur Leukocyte Esterase Urine Glucose Urine Ascorbic Acid Fluid Source Fluid Volume Fluid Color Fluid Appearance Fluid WBC Fluid RBC Fluid Tot Cell Count Fluid Neutrophils Fluid Lymphocytes Fluid Monocytes CSF Cell Count Tube # CSF Glucose CSF Total Protein Digoxin Influenza A (Rapid) Influenza B (Rapid) 10/13/18 10/13/18 10/13/18 03:39 06:35 06:35 WBC RBC Hgb Hct MCV MCH MCHC RDW Plt Count MPV Neut % (Auto) Lymph % (Auto) [place] % (Auto) Eos % (Auto) Baso % (Auto) Absolute Neuts (auto) Absolute Lymphs (auto) Absolute Monos (auto) Absolute Eos (auto) Absolute Basos (auto) Absolute Nucleated RBC Nucleated RBC % INR (Anticoag Therapy) APTT Sodium Potassium 3.3 L Chloride Carbon Dioxide Anion Gap BUN Creatinine Est GFR ( Amer) Est GFR (Non-Af Amer) BUN/Creatinine Ratio Glucose Lactic Acid 1.5 Calcium Magnesium 1.6 L Total Bilirubin AST ALT Alkaline Phosphatase Ammonia 54 H Troponin I B-Natriuretic Peptide Total Protein Albumin Globulin Albumin/Globulin Ratio Urine Color Urine Appearance Urine pH Ur Specific [place] Urine Protein Urine Ketones Urine Blood Urine Nitrate Urine Bilirubin Urine Urobilinogen Ur Leukocyte Esterase Urine Glucose Urine Ascorbic Acid Fluid Source Fluid Volume Fluid Color Fluid Appearance Fluid WBC Fluid RBC Fluid Tot Cell Count Fluid Neutrophils Fluid Lymphocytes Fluid Monocytes CSF Cell Count Tube # CSF Glucose CSF Total Protein Digoxin Influenza A (Rapid) Influenza B (Rapid) Studies: Head CT 10/12 IMPRESSION: No acute intracranial pathology. CXR 10/12 IMPRESSION: MILD PULMONARY INTERSTITIAL EDEMA Liver US 10/12 IMPRESSION: 1. Cholelithiasis without cholecystitis. 2. Sonographically normal liver. Impression: 78M with gerd, h/o SAH, prostate CA, transient global amnesia?, Afib presents with fever AMS. Was in rapid afib. Transferred to ICU. Plan: Neuro - AMS - 2/2 sepsis/fever - LP neg - CT head neg - mentating slightly better CV - afib with rvr - hr improved - c/w bblocker/dig - restart coumadin for AC Pulm - hypoxia - on 2L NC - cxr with mild pulm edema ID - fever - unclear etiology - on empiric vanc/cefepime/doxy/acyclovir by admitting team - encephalitis panel, tick panel, hepatitis panel all pending - rapid flu neg - lp neg - f/u cultures - cooling blanket GI - elevated lfts - ruq sono neg - hepatitis panel pending - repeat labs pending Renal - monitor lytes - monitor i/o Heme - monitor cbc Endo - check fs, niss Lines - piv PPx - gi/dvt DNR/DNI Critical Care Time: 65 mins
[2018-10-13] MEDS: Omeprazole CAP* 20 MG PO SCH (09:31)
[2018-10-13] MEDS ORDERED: NS 0.9% 50 ML* 50 ML ONE (10:29)
[2018-10-13] MEDS: cefTRIAXone(*) 1 GM in NS 0.9% 50 ML* 50 ML IVPB SCH (10:36)
[2018-10-13] MEDS ORDERED: Perflutren Lipid Microsphere* 3 ML VIAL ONE (10:47)
[2018-10-13] MEDS: Vancomycin(*) 1,000 MG in NS 0.9% 250 ML* 250 ML IVPB SCH ×2 (11:03→17:54)
[2018-10-13] MEDS: DOXYcycline IV* 100 MG in NS 0.9% 250 ML* 250 ML IVPB SCH ×2 (11:12→23:06)
--- NOTE | 2018-10-13 13:59 | ECHO ---
Patient: YAMIL POLO [facility] Rec#: [id number] : 1940 Date: 10/13/2018 Age: 78y Height: 185 cm / 72.8 in Weight: 88.4 kg / 194.8 lbs Sex: M BSA: 2.12 Room#: ICU 5 Admit Date#: 10/12/2018 Type: Inpatient Referring: Florina Roman Reading: Hector Abrams DO Mixer Blender: Nieves Dolan RN RDCS CC: Marco Antonio Webster Transthoracic Echocardiogram Indication: CHF BP: 114/71 HR: 88 Rhythm: A-Fib Findings History: A. fib, pacemaker, prostate cancer, transient global amnesia, subarachnoid hemorrhage in past. Technical Comments: The study is technically limited due to poor acoustic windows. Completed at 1200. Left Ventricle: The left ventricular chamber size is normal. There is a prominent septal knuckle. Global left ventricular wall motion and contractility are within normal limits. There is normal left ventricular systolic function. The estimated ejection fraction is 60-65%. The assessment of diastolic function is non-diagnostic. Left Atrium: The left atrium is mildly dilated. Right Ventricle: The right ventricle is mildly dilated. The right ventricular global systolic function is mildly reduced. A pacemaker wire is visualized in the right ventricle. Right Atrium: The right atrium is mild to moderately dilated. A pacemaker wire is visualized in the right atrium. Aortic Valve: The aortic valve is trileaflet. The aortic valve leaflets are mildly thickened. There is aortic annular calcification. There is mild aortic regurgitation. There is no evidence of aortic stenosis. Mitral Valve: The mitral valve leaflets are mildly thickened. There is trace to mild mitral regurgitation. There is no evidence of mitral stenosis. Tricuspid Valve: The tricuspid valve leaflets are normal. There is trace to mild tricuspid regurgitation. There is evidence of mild pulmonary hypertension. There is no tricuspid stenosis. Pulmonic Valve: The pulmonic valve appears normal. There is a trace pulmonic regurgitation. There is no pulmonic stenosis. Pericardium: There is no significant pericardial effusion. Aorta: There is mild dilatation of the ascending aorta. The aortic arch is not well visualized. There is mild dilatation of the aortic root. Pulmonary Artery: The main pulmonary artery is not well visualized. Venous: The inferior vena cava appears normal in size. There is a greater than 50% respiratory change in the inferior vena cava dimension. Contrast: Definity was used to optimize study. A total of 4 ml of diluted Definity was given IV to enhance imaging. Conclusions There is normal left ventricular systolic function. The estimated ejection fraction is 60-65%. The left atrium is mildly dilated. The right ventricle is mildly dilated. The right ventricular global systolic function is mildly reduced. A pacemaker wire is visualized in the right ventricle. There is evidence of mild pulmonary hypertension. There is mild dilatation of the aortic root. There is mild dilatation of the ascending aorta. No functionally significant valvular abnormalities noted Definity was used to optimize study. Compared to prior study from 08/2017, most significant change is the measured aortic dimension is less (was 4.5 previously) Measurements Name Value Normal Range RVIDd (AP) 2D 3.2 cm (0.9 - 2.6) RVDdMajor (2D) 3.5 cm (2.2 - 4.4) RAd ISD 4CH 5.9 cm (3.4 - 4.9) RA (A4C)W 4.7 cm (2.9 - 4.6) IVSd (2D) 1 cm (0.6 - 1) LVPWd (2D) 1 cm (0.6 - 1) LVIDd (2D) 3.6 cm (3.6 - 5.4) LVIDs (2D) 2 cm - LV FS (2D) 44 % (25 - 45) Aortic Annulus 2.2 cm (1.4 - 2.6) Ao root diameter (2D) 3.9 cm (2.1 - 3.5) Ascending Ao 3.8 cm (2.1 - 3.4) LA dimension (AP) 2D 3.5 cm (2.3 - 3.8) LAd ISD 4CH 5.8 cm (2.9 - 5.3) LA ISD 4CH W 4.4 cm (2.5 - 4.5) Name Value Normal Range LA ESV BP (A/L) index 38 ml/m2 - Name Value Normal Range MV E-wave Vmax 0.95 m/sec - MV deceleration time 150 msec - LV septal e' Vmax 0.11 m/sec - LV lateral e' Vmax 0.13 m/sec - LV E:e' septal ratio 8.6 ratio - LV E:e' lateral ratio 7.3 ratio - Name Value Normal Range AV Vmax 1 m/sec - AV VTI 23.3 cm - AV peak gradient 4 mmHg - AV mean gradient 4 mmHg - LVOT Vmax 0.82 m/sec - LVOT VTI 16 cm - LVOT peak gradient 3 mmHg - LVOT mean gradient 2 mmHg - Name Value Normal Range TR Vmax 2.9 m/sec - TR peak gradient 34 mmHg - RAP 3 mmHg - RVSP 37 mmHg - IVC diameter 1.4 cm - Name Value Normal Range PV Vmax 0.6 m/sec -
--- NOTE | 2018-10-13 15:39 | CONS ---
CONSULTATION REPORT: DATE OF CONSULT: 10/13/18 REQUESTING PROVIDER: Amadou Dominguez NP CONSULTING SERVICE: Infectious Disease. REASON FOR CONSULT: Fever. IMPRESSION: 1. About a week of progressive fever, intermittent encephalopathy, initial thrombocytopenia, and mild transaminitis. No upper respiratory infection symptoms. No rash. Does spend a fair amount of time outdoors here. Differential diagnosis does include viral, i.e., CMV, bacterial given that he has a pacemaker. Device infection is possible. His pacemaker pocket was fine. Tick-borne including Anaplasma or Ehrlichia given the thrombocytopenia and transaminitis. His urine studies and chest x-ray are clear. No abdominal symptoms. 2. Status post pacemaker placement about 1 year ago, left chest. 3. Atrial fibrillation. 4. History of subarachnoid hemorrhage. RECOMMENDATIONS: 1. Continue current antibacterial therapy. Will also add CMV serology. Tick PCR panel and blood cultures are pending. Antipyretics per primary team. HISTORY OF PRESENT ILLNESS: This is an 78-year-old man, who was well until Wednesday. He developed chills, fevers, became a little bit disoriented. By the next morning, he was feeling better, but his symptoms recurred. This was after a trip to [place], staying with relatives. No particular sick contacts that he can identify. His girlfriend brought him to the emergency room on 10/11. Evaluation then, his ALT was 78. Other tests were unremarkable. Hydrated and felt much better. Symptoms worsened though the following day as he had not been taking much by mouth and came back to the hospital yesterday. White count of 7000. Febrile to 105. Hemodynamically stable. ALT up to 90, bilirubin 0.6. With no focal signs or symptoms, he has been started on broad-spectrum antibiotics. Chest x-ray showed mild interstitial edema. An ultrasound of his liver showed cholelithiasis and normal liver. Today, he has no pain. He feels chills without muscle or body aches. He spends a fair amount of time outdoors where he lives in [place]. They have cats, which are outdoor cats. He had traveled with [place] with his girlfriend. PAST MEDICAL HISTORY: 1. Atrial fibrillation. 2. Status post pacemaker placement. 3. Prostate cancer, treated with prostatectomy. 4. Gastroesophageal reflux disease. 5. Subarachnoid hemorrhage. MEDICATIONS: 1. Tylenol. 2. Acyclovir 800 mg every 8 hours. 3. Lipitor. 4. Digoxin. 5. Doxycycline 100 mg every 12 hours. 6. Metoprolol. 7. Omeprazole. 8. Ceftriaxone 1 g daily. 9. Vancomycin 1 g every 8 hours. 10. Warfarin. ALLERGIES: No known drug allergies. FAMILY HISTORY: Mother with COPD. Father had cancer. SOCIAL HISTORY: Lives with his girlfriend in [place]. Traveled to [place]. They have outdoor cats. No foreign travel. REVIEW OF SYSTEMS: All negative to a 14-point review except as noted above in the history of present illness. PHYSICAL EXAM: Vital Signs: Temperature of 37, T-max was 41 degrees, heart rate 91, respiratory rate 20, blood pressure 114/71, oxygen saturation 95% on supplemental oxygen 25 L per minute. In general, he is awake, not in distress. Neurologic: He is oriented x3. Follows all commands. Moves all extremities. Cranial nerves II through XII are intact. HEENT: There is no conjunctival hemorrhage. Oropharynx without lesions. Neck is supple without mass. Heart is regular rate and rhythm without murmurs, rubs, or gallops. Lungs are clear to auscultation bilaterally. Abdomen: Soft, nontender, nondistended. There are bowel sounds present. Skin: There is no rash or splinter hemorrhage. Lymph Nodes: There is no cervical, supraclavicular, inguinal, axillary, or epitrochlear lymphadenopathy. Musculoskeletal: There is no spine tenderness to palpation or joint synovitis. LABORATORY DATA: White blood cell count 8, hemoglobin 13.8, platelets 200. Creatinine 0.9. BNP 200. INR 1.3. Please see impressions and recommendations as outlined above, which I have discussed with Dr. Westfall. Thanks for asking me to see Mr. Milligan in consultation. [id number]/[facility] #: [id number] DAKSHA
[2018-10-13] MEDS ORDERED: Warfarin TAB(*) 5 MG PO ONE (17:00)
[2018-10-13] MEDS: Atorvastatin* 10 MG TAB PO SCH (17:54)
[2018-10-13] MEDS: Digoxin TAB* 0.125 MG PO SCH (17:54)
[2018-10-14] MEDS: Vancomycin(*) 1,000 MG in NS 0.9% 250 ML* 250 ML IVPB SCH (02:02)
[2018-10-14] MEDS: Acetaminophen TAB* 325 MG PO PRN ×2 (03:27→15:45)
[2018-10-14] MEDS: Acyclovir IV(*) 800 MG in NS 0.9% 250 ML* 250 ML IVPB SCH ×3 (04:54→20:11)
[2018-10-14 05:37] LABS: Hematocrit 35 % (42-52); Mean Corpuscular HGB Conc 34 g/dl (31-36); Mean Corpuscular Hemoglobin 31 pg (27-31); Mean Corpuscular Volume 91 fL (80-94); Mean Platelet Volume 8.8 fL (7.4-10.4); Platelet Count 91 10^3/ul (150-450); Red Blood Count 3.87 10^6/ul (4.00-5.40); Red Cell Distribution Width 14 % (10.5-15); White Blood Count 9.1 10^3/ul (3.5-10.8)
[2018-10-14 05:40] LABS: INR 2.25 (0.77-1.02)
[2018-10-14 05:53] LABS: EGFR Non-African American 97.2 (>60)
[2018-10-14 06:15] LABS: ABS Basophils 0.1 10^3/ul (0-0.2); ABS Eosinophils 0 10^3/ul (0-0.6); ABS Neutrophils 5.9 10^3/ul (1.5-7.7); ABS Nucleated RBC 0.01 10^3/ul
[2018-10-14 06:16] LABS: Eosinophil % 0.3 % (0-6); Lymphocyte % 22.3 % (25-47); Nucleated Red Blood Cells % 0.1
[2018-10-14] MEDS ORDERED: Potassium Chlor TAB* 20 MEQ TAB.ER PO ONE (09:00)
[2018-10-14] MEDS: Omeprazole CAP* 20 MG PO SCH (09:29)
[2018-10-14] MEDS: Metoprolol Succinate XL TAB* 25 MG PO SCH (09:30)
[2018-10-14] MEDS: Aspirin EC TAB* 81 MG TAB.EC PO SCH (09:30)
[2018-10-14] MEDS ORDERED: Vancomycin Trough Check NOTE FOLLOW UP ONE (10:00)
[2018-10-14] MEDS: DOXYcycline IV* 100 MG in NS 0.9% 250 ML* 250 ML IVPB SCH ×2 (10:30→22:06)
[2018-10-14] MEDS: cefTRIAXone(*) 1 GM in NS 0.9% 50 ML* 50 ML IVPB SCH (10:30)
[2018-10-14] MEDS ORDERED: Docusate CAP* 100 MG PO PRN (11:54)
--- NOTE | 2018-10-14 11:57 | PN ---
Subjective Date of Service: 10/14/18 Interval History: Pt resting comfortably in bed, not in acute distress. Still endorsing fatigue/ weakness. Alert and oriented, but says thinking is a little slower than usual. Denies chest pain, shortness of breath, headache, visual changes. Pt's significant other says his belly is more distended than usual, but pt denies any abdominal pain, nausea/vomiting, says he is passing gas. Pt feels he might be constipated. Expressed frustration with not having a diagnosis. Objective Active Medications: Acetaminophen (Tylenol Tab*) 650 mg PO Q4H PRN PRN Reason: FEVER/PAIN Last Admin: 10/14/18 03:27 Dose: 650 mg Acetaminophen (Tylenol Supp*) 650 mg PA Q6H PRN PRN Reason: FEVER Last Admin: 10/13/18 02:45 Dose: 650 mg Aspirin (Aspirin Ec Tab*) 81 mg PO DAILY WITH MEAL [facility] Last Admin: 10/14/18 09:30 Dose: 81 mg Atorvastatin Calcium (Lipitor*) 10 mg PO QPM [facility]; Protocol Last Admin: 10/13/18 17:54 Dose: 10 mg Digoxin (Lanoxin Tab*) 0.125 mg PO DAILY@1700 [facility] Last Admin: 10/13/18 17:54 Dose: 0.125 mg Acyclovir Sodium 800 mg/ (Sodium Chloride) 266 mls @ 266 mls/hr IVPB Q8H [facility] Last Admin: 10/14/18 04:54 Dose: 266 mls/hr Doxycycline Hyclate 100 mg/ (Sodium Chloride) 250 mls @ 250 mls/hr IVPB Q12H [facility] Last Admin: 10/14/18 10:30 Dose: 250 mls/hr Ceftriaxone Sodium 1 gm/ (Sodium Chloride) 50 mls @ 200 mls/hr IVPB Q24H [facility] Last Admin: 10/14/18 10:30 Dose: 200 mls/hr Metoprolol Succinate ([facility] Xl Tab*) [facility] Last Admin: 10/14/18 09:30 Dose: 12.5 mg Metoprolol Tartrate (Lopressor Iv*) 5 mg IV Q4HR PRN PRN Reason: HEART RATE/PULSE Last Admin: 10/13/18 05:16 Dose: 5 mg Omeprazole (Prilosec Cap*) 20 mg PO QAM [facility] Last Admin: 10/14/18 09:29 Dose: 20 mg Pharmacy Profile Note (Coumadin Per Pharmacy*) 1 note FOLLOW UP .PER PHARMACY PROTOC [facility]; Protocol Potassium Chloride (Klor Con Er Tab*) 20 meq PO DAILY [facility] Warfarin Sodium (Coumadin Tab(*)) 2.5 mg PO 1700 ONE Stop: 10/14/18 17:01 Vital Signs - 8 hr 10/14/18 10/14/18 10/14/18 04:58 07:22 08:00 Temperature 101.2 F Pulse Rate Respiratory 18 Rate Blood Pressure (mmHg) O2 Sat by Pulse 96 Oximetry 10/14/18 10/14/18 08:04 08:30 Temperature 98.2 F Pulse Rate 95 Respiratory 20 Rate Blood Pressure 82/54 102/58 (mmHg) O2 Sat by Pulse 99 Oximetry Oxygen Devices in Use Now: Nasal Cannula Eyes: No Scleral Icterus, PERRLA Ears/Nose/Mouth/Throat: NL Teeth, Lips, Gums, Clear Oropharnyx, Mucous Membranes Moist Neck: NL Appearance and Movements; NL JVP, Trachea Midline Respiratory: Symmetrical Chest Expansion and Respiratory Effort, Clear to Auscultation Cardiovascular: NL Sounds; No Murmurs; No JVD, - - Irregularly irregular rhythm. Trace peripheral edema. Abdominal: - - Abdomen distended but soft. No tenderness to palpation. NL sounds. Extremities: No Clubbing, Cyanosis Skin: No Rash or Ulcers, No Nodules or Sclerosis, - - Ecchymosis on bilateral arms from blood drawens Neurological: NL Muscle Strength and Tone, - - Oriented to person, place, time and situation, but takes a few seconds to come up with answers Lines/Tubes/Other Access: Clean, Dry and Intact Peripheral IV Nutrition: Taking PO's Result Diagrams: 10/14/18 05:16 10/14/18 05:16 Microbiology and Other Data: Microbiology 10/12/18 17:31 Aerobic Blood Culture - Preliminary Blood Venous No Growth Day 1 Anaerobic Blood Culture - Preliminary No Growth Day 1 10/12/18 17:15 Aerobic Blood Culture - Preliminary Blood Venous No Growth Day 1 Anaerobic Blood Culture - Preliminary No Growth Day 1 10/12/18 18:50 CSF Gram Stain (Tube 3) - Final Cerebral Spinal Fluid CSF Culture - Preliminary No Growth Day 1 10/13/18 03:13 Nasal Screen MRSA (PCR) - Final Nasal Mrsa Not Detected 10/12/18 17:28 Influenza Types A,B Antigen - Final Nasopharyngeal Specimen received for Influenza A/B Molecular testing Assess/Plan/Problems-Billing Assessment: 78 year old male with PMH afib (on coumadin), subarachnoid hemorrhage, hx prostate ca who presented to the ED with 1 wk history of weakness , fatigue fevers admitted for fever of unknown origin (T max 105), beuing treated with vanco, doxy, ceftriaxone, acyclovir - Patient Problems (1) Fever Current Visit: Yes Status: Acute Code(s): R50.9 - FEVER, UNSPECIFIED SNOMED Code(s): 680703837 Comment: - Continues to spike fevers - 24H T max 102.8. No leukocytosois. - No source identified so far: suspect viral vs tick-borne - Blood cultures and CSF no growth to date, UA negative, Flu negative, Hepatitis A, B, C negative. Tick pannel and CMV pending. - Appreciated continued ID recommendations - Continue vanco, doxy, ceftriaxone and acyclovir (2) Altered mental status Current Visit: Yes Status: Acute Code(s): R41.82 - ALTERED MENTAL STATUS, UNSPECIFIED SNOMED Code(s): 990183434 Comment: - Confusion likely secondary to fever. Did have episode of aphasia in assoiation with temp 104. Brain CT with no acute intracranial hemmorhage. Aphasia resolved. - Today pt is alert and oriented x3 and speaking fluently but says his thinking is slower (3) Hypoxia Current Visit: Yes Status: Acute Code(s): R09.02 - HYPOXEMIA SNOMED Code(s ): 560597401 Comment: - Secondary to pulmonary edema. Received 40 mg IV lasix on 10/13. Resolved: Pt satting 100% on 2L which can be titrated down. No SOB, tachypnea or rales. (4) Atrial fibrillation Current Visit: No Status: Chronic Code(s): I48.91 - UNSPECIFIED ATRIAL FIBRILLATION SNOMED Code(s): 69350164 Comment: - Rate controlled on metoprolol and digoxin - Anticoagulation with coumadin. INR therapeutic. Dosing per pharmacy. (5) LFTs abnormal Current Visit: Yes Status: Acute Code(s): R94.5 - ABNORMAL RESULTS OF LIVER FUNCTION STUDIES SNOMED Code(s): 008676803 Comment: - Still with elevated LFTs. No abd pain, N/V. - RUQ sonogram negative - Hepatitis pannel negative - LFTs are elvated with some tick-bourne illnesses (6) Thrombocytopenia Current Visit: Yes Status: Acute Code(s): D69.6 - THROMBOCYTOPENIA, UNSPECIFIED SNOMED Code(s): 079593606 Comment: - 91 today. Also with dropping H/H since admission. No signs of acute bleeding. Could be dilutional vs consequence of tick-borne illness - Will continue to monitor (7) DVT prophylaxis Current Visit: No Status: Acute Code(s): CUU4013 - SNOMED Code(s): 677592998 Comment: - On coumadin (8) DNR (do not resuscitate) Current Visit: Yes Status: Acute Status and Disposition: Inpatient. Anticipate discharge to home when medically stable. Attending: Paola Leon
--- NOTE | 2018-10-14 13:16 | PN ---
Progress Note - Progress Note Date of Service: 10/14/18 SOAP: Subjective: CC: fever HPI: 78 yo man with encephalopathy and fever; mental status improved, fever is intermittent and chills and aches are gone. Ate lunch. He and his GF think his mental status are back to normal. Objective: Vital Signs Temp 36.6 C 10/14/18 11:54 Pulse 81 10/14/18 11:54 Resp 16 10/14/18 11:54 BP 117/74 10/14/18 11:54 Pulse Ox 100 10/14/18 11:54 Intake & Output 10/13/18 10/14/18 10/14/18 18:59 06:59 18:59 Intake Total 1280 1635 625 Output Total 1775 550 Balance -495 1085 625 Intake: IV Fluids 800 40 10 ABX - DOXYCYCLINE 10 ABX - VANCOMYCIN 10 NS (0.9%) 550 10 acyclovir 250 20 IVPB 1250 55 ABX - CEFTRIAXONE 55 ABX - DOXYCYCLINE 250 ABX - VANCOMYCIN 500 acyclovir 500 Oral 480 345 560 Output: Urine 1500 [place] 275 550 Other: # Bowel Movements 1 Estimated Stool Amount Small Gen:awake, no distress HEENT: no thrush Neuro: AAOx3 CN 2-12 intact Heart:RRR no murmur Lungs:CTA BL Abd: +BS NTND soft Skin: no rash Laboratory Results - last 24 hr 10/14/18 10/14/18 10/14/18 05:16 05:16 05:16 WBC 9.1 RBC 3.87 L Hgb 12.0 L Hct 35 L MCV 91 MCH 31 MCHC 34 RDW 14 Plt Count 91 L D MPV 8.8 Neut % (Auto) 65.5 Lymph % (Auto) 22.3 L Towns % (Auto) 10.7 H Eos % (Auto) 0.3 Baso % (Auto) 1.2 Absolute Neuts (auto) 5.9 Absolute Lymphs (auto) 2.0 Absolute Monos (auto) 1.0 H Absolute Eos (auto) 0 Absolute Basos (auto) 0.1 Absolute Nucleated RBC 0.01 Nucleated RBC % 0.1 INR (Anticoag Therapy) 2.25 H Sodium 137 Potassium 3.4 L Chloride 107 Carbon Dioxide 23 Anion Gap 7 BUN 20 Creatinine 0.77 Est GFR ( Amer) 117.6 Est GFR (Non-Af Amer) 97.2 BUN/Creatinine Ratio 26.0 H Glucose 125 H Calcium 7.5 L Magnesium 1.9 Microbiology 10/12/18 17:31 Aerobic Blood Culture - Preliminary Blood Venous No Growth Day 1 Anaerobic Blood Culture - Preliminary No Growth Day 1 10/12/18 17:15 Aerobic Blood Culture - Preliminary Blood Venous No Growth Day 1 Anaerobic Blood Culture - Preliminary No Growth Day 1 10/12/18 18:50 CSF Gram Stain (Tube 3) - Final Cerebral Spinal Fluid CSF Culture - Preliminary No Growth Day 1 Assessment: 1. Septic encephalopathy, present on admission, improving 2. Fever, ongoing with thromboctyopenia and transaminitis; diff dx viral vs tick borne ie Anaplasma or Ehrlichiosis 3. presence of pacemaker Plan: 1. DC vanco and ceftriaxone; continue acyclovir, can stop if CSF HSV PCR is negative. Continue doxycycline 2. tick panel, CMV serology pending 35 minutes floor time >50% face to face in counseling with patient and GF regarding workup and treatment. All questions answered.
[2018-10-14] MEDS ORDERED: Warfarin TAB(*) 2.5 MG PO ONE (17:00)
[2018-10-14] MEDS: Digoxin TAB* 0.125 MG PO SCH (17:50)
[2018-10-14] MEDS: Atorvastatin* 10 MG TAB PO SCH (17:50)
[2018-10-14 23:09] LABS: Lyme Disease Source CSF
[2018-10-15 01:06] LABS: B. miyamotoi PCR, B Negative (Negative)
[2018-10-15] MEDS: Acyclovir IV(*) 800 MG in NS 0.9% 250 ML* 250 ML IVPB SCH ×3 (04:35→22:11)
[2018-10-15 05:18] LABS: Hematocrit 38 % (42-52); Hemoglobin 13.1 g/dl (14.0-18.0); Mean Corpuscular HGB Conc 34 g/dl (31-36); Mean Corpuscular Hemoglobin 31 pg (27-31); Mean Corpuscular Volume 91 fL (80-94); Mean Platelet Volume 9.1 fL (7.4-10.4); Platelet Count 105 10^3/ul (150-450); Red Blood Count 4.19 10^6/ul (4.00-5.40); Red Cell Distribution Width 14 % (10.5-15)
[2018-10-15 05:21] LABS: INR 2.97 (0.77-1.02)
[2018-10-15 05:35] LABS: EGFR Non-African American 97.2 (>60)
[2018-10-15 05:46] LABS: Monocytes % 13 % (0-7)
[2018-10-15] MEDS: Metoprolol Succinate XL TAB* 25 MG PO SCH (07:55)
[2018-10-15] MEDS: Aspirin EC TAB* 81 MG TAB.EC PO SCH (07:56)
[2018-10-15] MEDS: Potassium Chlor TAB* 20 MEQ TAB.ER PO SCH (07:56)
[2018-10-15] MEDS: Omeprazole CAP* 20 MG PO SCH (07:56)
[2018-10-15] MEDS: Acetaminophen TAB* 325 MG PO PRN ×2 (07:56→19:40)
[2018-10-15] MEDS: DOXYcycline IV* 100 MG in NS 0.9% 250 ML* 250 ML IVPB SCH ×2 (10:24→23:51)
[2018-10-15] MEDS ORDERED: NS 0.9% 500 ML* 500 ML IV ONE (11:34)
[2018-10-15] MEDS: cefTRIAXone(*) 1 GM in NS 0.9% 50 ML* 50 ML IVPB SCH (15:59)
[2018-10-15] MEDS ORDERED: Warfarin TAB(*) 1 MG PO ONE (17:00)
--- NOTE | 2018-10-15 17:05 | PN ---
Subjective Date of Service: 10/15/18 Interval History: Febrile again and hypotensive. 500 cc bolus and MAPs improved to above 65. Procalcitonin checked, elevated to 1.8. CFTX restarted. Emma Dutta CT Chest abd pelvis with po and IV contrast ordered. attested to urinary incontinence prior to admission. attests to some bilateral knee pain over the last year but no Hx of bacterial menigitis in 7th grade. "almost " denies cough, SOB, chest pain, abdominal pain, dysphagia, early satiety, YOUNG. Some abdominal bloating today. Had poor appetite at home for a week. Hx of EGD about 5 years ago and colonoscopy Asked to be Lyme tested (Due to intermittent fatigue) about 5 years ago but reports this was negative. Objective Active Medications: Acetaminophen (Tylenol Tab*) 650 mg PO Q4H PRN PRN Reason: FEVER/PAIN Last Admin: 10/15/18 07:56 Dose: 650 mg Acetaminophen (Tylenol Supp*) 650 mg DC Q6H PRN PRN Reason: FEVER Last Admin: 10/13/18 02:45 Dose: 650 mg Aspirin (Aspirin Ec Tab*) 81 mg PO DAILY WITH MEAL [facility] Last Admin: 10/15/18 07:56 Dose: 81 mg Atorvastatin Calcium (Lipitor*) 10 mg PO QPM [facility]; Protocol Last Admin: 10/14/18 17:50 Dose: 10 mg Digoxin (Lanoxin Tab*) 0.125 mg PO DAILY@1700 [facility] Last Admin: 10/14/18 17:50 Dose: 0.125 mg Docusate Sodium (Colace Cap*) 100 mg PO DAILY PRN PRN Reason: CONSTIPATION Acyclovir Sodium 800 mg/ (Sodium Chloride) 266 mls @ 266 mls/hr IVPB Q8H [facility] Last Admin: 10/15/18 12:43 Dose: 266 mls/hr Doxycycline Hyclate 100 mg/ (Sodium Chloride) 250 mls @ 250 mls/hr IVPB Q12H [facility] Last Admin: 10/15/18 10:24 Dose: 250 mls/hr Ceftriaxone Sodium 1 gm/ (Sodium Chloride) 50 mls @ 200 mls/hr IVPB Q24H [facility] Last Admin: 10/15/18 15:59 Dose: 200 mls/hr Metoprolol Succinate (Toprol Xl Tab*) 12.5 mg PO QAM [facility] Last Admin: 10/15/18 07:55 Dose: 12.5 mg Metoprolol Tartrate (Lopressor Iv*) 5 mg IV Q4HR PRN PRN Reason: HEART RATE/PULSE Last Admin: 10/13/18 05:16 Dose: 5 mg Omeprazole (Prilosec Cap*) 20 mg PO QAM [facility] Last Admin: 10/15/18 07:56 Dose: 20 mg Pharmacy Profile Note (Coumadin Per Pharmacy*) 1 note FOLLOW UP .PER PHARMACY PROTOC [facility]; Protocol Potassium Chloride (Klor Con Er Tab*) 20 meq PO DAILY [facility] Last Admin: 10/15/18 07:56 Dose: Not Given Vital Signs - 8 hr 10/15/18 10/15/18 10/15/18 10:24 11:23 13:25 Temperature 97.6 F 97.3 F 96.8 F Pulse Rate 91 87 Respiratory 16 20 Rate Blood Pressure 77/52 87/57 (mmHg) O2 Sat by Pulse 95 98 Oximetry 10/15/18 15:27 Temperature 97.4 F Pulse Rate 91 Respiratory 18 Rate Blood Pressure 89/63 (mmHg) O2 Sat by Pulse 96 Oximetry Oxygen Devices in Use Now: Nasal Cannula Appearance: NAD, initially asleep. Eyes: No Scleral Icterus, PERRLA Ears/Nose/Mouth/Throat: NL Teeth, Lips, Gums, Mucous Membranes Moist Respiratory: Symmetrical Chest Expansion and Respiratory Effort, Clear to Auscultation Cardiovascular: NL Sounds; No Murmurs; No JVD Abdominal: - - soft but moderately distended. Non tender, no guarding, negative Zaragoza's sign. Extremities: No Edema, No Clubbing, Cyanosis Skin: - - 1.5x1.5cm patch on scalp w/o erythema or prurtis. Neurological: Alert and Oriented x 3, NL Sensation, NL Muscle Strength and Tone , - - CN II-XII intact. Lines/Tubes/Other Access: Clean, Dry and Intact [place] Nutrition: Taking PO's Result Diagrams: 10/15/18 05:03 10/15/18 05:03 Additional Lab and Data: Laboratory Results - last 24 hr 10/12/18 10/12/18 10/14/18 18:50 22:17 05:16 WBC RBC Hgb Hct MCV MCH MCHC RDW Plt Count MPV Neut % (Auto) Lymph % (Auto) Meagher % (Auto) Eos % (Auto) Baso % (Auto) Absolute Neuts (auto) Absolute Lymphs (auto) Absolute Monos (auto) Absolute Eos (auto) Absolute Basos (auto) Absolute Nucleated RBC Immature Gran % Neutrophils % Band Neutrophils % Lymphocytes % Reactive Lymphs % Monocytes % Eosinophils % Nucleated RBC % Normal RBC Morphology ESR INR (Anticoag Therapy) Sodium Potassium Chloride Carbon Dioxide Anion Gap BUN Creatinine Est GFR ( Amer) Est GFR (Non-Af Amer) BUN/Creatinine Ratio Glucose Calcium Magnesium C-Reactive Protein Procalcitonin B. burgdorferi (PCR) Negative B. mayonii (PCR) Negative B.garinii/B.afzelii PCR Negative CSF Lyme DNA Comment See comment Anaplasma DNA (PCR) Negative B. divergens/MO-1 PCR Negative Babesia duncani DNA PCR Negative Babesia microti DNA PCR Negative Lyme Disease Serology Negative Lyme Specimen Source Csf Borrelia miyamotoi (PCR) Negative CMV IgG Ab Negative CMV IgM Ab Negative E.chaffeensis DNA (PCR) Negative E. ewingii/canis (PCR) Negative E. muris-like DNA (PCR) Negative 10/15/18 10/15/18 10/15/18 05:03 05:03 05:03 WBC 9.0 RBC 4.19 Hgb 13.1 L Hct 38 L MCV 91 MCH 31 MCHC 34 RDW 14 Plt Count 105 L MPV 9.1 Neut % (Auto) Not Reportable Lymph % (Auto) Not Reportable Meagher % (Auto) Not Reportable Eos % (Auto) Not Reportable Baso % (Auto) Not Reportable Absolute Neuts (auto) Not Reportable Absolute Lymphs (auto) Not Reportable Absolute Monos (auto) Not Reportable Absolute Eos (auto) Not Reportable Absolute Basos (auto) Not Reportable Absolute Nucleated RBC Not Reportable Immature Gran % 1 Neutrophils % 75 Band Neutrophils % 1 Lymphocytes % 4 L Reactive Lymphs % 6 Monocytes % 13 H Eosinophils % 1 Nucleated RBC % Not Reportable Normal RBC Morphology Normal ESR 41 H INR (Anticoag Therapy) 2.97 H Sodium 136 Potassium 3.6 Chloride 105 Carbon Dioxide 26 Anion Gap 5 BUN 16 Creatinine 0.77 Est GFR ( Amer) 117.6 Est GFR (Non-Af Amer) 97.2 BUN/Creatinine Ratio 20.8 H Glucose 102 H Calcium 7.8 L Magnesium 1.8 L C-Reactive Protein 125.24 H Procalcitonin B. burgdorferi (PCR) B. mayonii (PCR) B.garinii/B.afzelii PCR CSF Lyme DNA Comment Anaplasma DNA (PCR) B. divergens/MO-1 PCR Babesia duncani DNA PCR Babesia microti DNA PCR Lyme Disease Serology Lyme Specimen Source Borrelia miyamotoi (PCR) CMV IgG Ab CMV IgM Ab E.chaffeensis DNA (PCR) E. ewingii/canis (PCR) E. muris-like DNA (PCR) 10/15/18 05:03 WBC RBC Hgb Hct MCV MCH MCHC RDW Plt Count MPV Neut % (Auto) Lymph % (Auto) Meagher % (Auto) Eos % (Auto) Baso % (Auto) Absolute Neuts (auto) Absolute Lymphs (auto) Absolute Monos (auto) Absolute Eos (auto) Absolute Basos (auto) Absolute Nucleated RBC Immature Gran % Neutrophils % Band Neutrophils % Lymphocytes % Reactive Lymphs % Monocytes % Eosinophils % Nucleated RBC % Normal RBC Morphology ESR INR (Anticoag Therapy) Sodium Potassium Chloride Carbon Dioxide Anion Gap BUN Creatinine Est GFR ( Amer) Est GFR (Non-Af Amer) BUN/Creatinine Ratio Glucose Calcium Magnesium C-Reactive Protein Procalcitonin 1.8 H B. burgdorferi (PCR) B. mayonii (PCR) B.garinii/B.afzelii PCR CSF Lyme DNA Comment Anaplasma DNA (PCR) B. divergens/MO-1 PCR Babesia duncani DNA PCR Babesia microti DNA PCR Lyme Disease Serology Lyme Specimen Source Borrelia miyamotoi (PCR) CMV IgG Ab CMV IgM Ab E.chaffeensis DNA (PCR) E. ewingii/canis (PCR) E. muris-like DNA (PCR) Microbiology and Other Data: Microbiology 10/12/18 17:31 Blood Venous Aerobic Blood Culture - Preliminary No Growth Day 3 10/12/18 17:31 Blood Venous Anaerobic Blood Culture - Preliminary No Growth Day 3 10/12/18 17:15 Blood Venous Aerobic Blood Culture - Preliminary No Growth Day 3 10/12/18 17:15 Blood Venous Anaerobic Blood Culture - Preliminary No Growth Day 3 10/12/18 18:50 Cerebral Spinal Fluid CSF Gram Stain (Tube 3) - Final 10/12/18 18:50 Cerebral Spinal Fluid CSF Culture - Preliminary No Growth Day 3 10/13/18 03:13 Nasal Nasal Screen MRSA (PCR) - Final Mrsa Not Detected 10/12/18 17:28 Nasopharyngeal Influenza Types A,B Antigen - Final Specimen received for Influenza A/B Molecular testing Assess/Plan/Problems-Billing Assessment: 78 year old male with PMH afib (on coumadin), subarachnoid hemorrhage, hx prostate ca who presented to the ED with 1 wk history of weakness, fatigue fevers, urinary incontinence, altered mental status. Admitted for fever of unknown origin (T max 105), Currently doxy, ceftriaxone, acyclovir. CT chest abd /pelvis pending. - Patient Problems (1) Fever Current Visit: Yes Status: Acute Code(s): R50.9 - FEVER, UNSPECIFIED SNOMED Code(s): 635642360 Comment: - Continues to spike fevers No current leukocytosois but inflammatory markers up. - No source identified so far: I am getting CT chest abd pelvis with po and IV contrast. Only localizing signs currently some abdominal bloating and uncharacteristic urinary incontinence on admission. - Blood cultures and CSF no growth to date, UA negative, Flu negative, Hepatitis A, B, C negative. Tick pannel negative so far and CMV negative. Adding on Lyme serology (instead of just PCR) - Appreciated continued ID recommendations - Continue doxy, restart ceftriaxone and continue acyclovir until CSF HSV negative (2) Altered mental status Current Visit: Yes Status: Acute Code(s): R41.82 - ALTERED MENTAL STATUS, UNSPECIFIED SNOMED Code(s): 000475756 Comment: - resolved. Did have episode of aphasia in assoiation with temp 104. Brain CT with no acute intracranial hemmorhage. Aphasia resolved. - Today pt is alert and oriented x3 and speaking fluently but says his thinking is slower (3) Hypoxia Current Visit: Yes Status: Acute Code(s): R09.02 - HYPOXEMIA SNOMED Code(s ): 080553286 Comment: resolved, on 0L currently - Secondary to pulmonary edema. Received 40 mg IV lasix on 10/13. . No SOB, tachypnea or rales. BNP 207 (4) LFTs abnormal Current Visit: Yes Status: Acute Code(s): R94.5 - ABNORMAL RESULTS OF LIVER FUNCTION STUDIES SNOMED Code(s): 403243052 Comment: - Still with elevated LFTs. No abd pain, N/V. - RUQ sonogram negative - Hepatitis pannel negative - LFTs are elvated with some tick-bourne illnesses (5) Thrombocytopenia Current Visit: Yes Status: Acute Code(s): D69.6 - THROMBOCYTOPENIA, UNSPECIFIED SNOMED Code(s): 932174283 Comment: - 105 today. infectious vs inflammatory (6) Amnesia Current Visit: No Status: Acute Priority: High Onset Date: 08/24/14 Comment: attests last episode was 20 years ago. (7) Chest pain Current Visit: No Status: Acute Code(s): R07.9 - CHEST PAIN, UNSPECIFIED SNOMED Code(s): 40648044 Comment: - Suspect this is muscular in nature - Troponins negative - CTA shows no dissection or PE - GB US - cholelithiasis - Continue metoprolol and statin (8) DVT prophylaxis Current Visit: No Status: Acute Code(s): VCX2383 - SNOMED Code(s): 245171306 Comment: - On coumadin (9) Full code status Current Visit: No Status: Acute Code(s): Z78.9 - OTHER SPECIFIED HEALTH STATUS SNOMED Code(s): 239827959 (10) Atrial fibrillation Current Visit: No Status: Chronic Code(s): I48.91 - UNSPECIFIED ATRIAL FIBRILLATION SNOMED Code(s): 62383980 Comment: - Rate controlled on metoprolol and digoxin - Anticoagulation with coumadin. INR therapeutic. Dosing per pharmacy. Status and Disposition: Inpatient. Anticipate discharge to home when medically stable.
[2018-10-15] MEDS: Atorvastatin* 10 MG TAB PO SCH (18:16)
[2018-10-15] MEDS: Digoxin TAB* 0.125 MG PO SCH (18:16)
[2018-10-15] MEDS ORDERED: Iohexol 300* (CONTRAST) 10 ML SDV IV ONE (18:57)
[2018-10-15] MEDS ORDERED: Magnesium Sulfate 2 GM IV* 2 GM/50 ML BAG IVPB ONE (19:04)
[2018-10-16] MEDS: Acetaminophen TAB* 325 MG PO PRN ×3 (00:10→23:43)
[2018-10-16] MEDS: Acyclovir IV(*) 800 MG in NS 0.9% 250 ML* 250 ML IVPB SCH ×2 (04:14→12:40)
[2018-10-16 05:30] LABS: EGFR Non-African American 101.8 (>60)
[2018-10-16 05:32] LABS: INR 3.56 (0.77-1.02)
[2018-10-16] MEDS: Potassium Chlor TAB* 20 MEQ TAB.ER PO SCH (08:33)
[2018-10-16] MEDS: Metoprolol Succinate XL TAB* 25 MG PO SCH (08:40)
[2018-10-16] MEDS: Omeprazole CAP* 20 MG PO SCH (08:40)
[2018-10-16] MEDS: Aspirin EC TAB* 81 MG TAB.EC PO SCH (08:40)
[2018-10-16] MEDS: DOXYcycline IV* 100 MG in NS 0.9% 250 ML* 250 ML IVPB SCH (08:48)
[2018-10-16] MEDS ORDERED: Warfarin TAB(*) 1 MG PO ONE (17:00)
--- NOTE | 2018-10-16 17:41 | PN ---
Subjective Date of Service: 10/16/18 Interval History: Tmax 102.8 at 2200 last night. 99.3 today. Fever curve improving. Lyme serology negative BP stable. Feeling a bit better today. no chest pain, SOB, abdominal pain. had large soft BM - not diarrhea Hx of Syphillis IgG positive but FTA negative x 2 in 2011. Hx of nml SPEP this year PSA wnl last month. Objective Active Medications: Acetaminophen (Tylenol Tab*) 650 mg PO Q4H PRN PRN Reason: FEVER/PAIN Last Admin: 10/16/18 08:40 Dose: 650 mg Acetaminophen (Tylenol Supp*) 650 mg RI Q6H PRN PRN Reason: FEVER Last Admin: 10/13/18 02:45 Dose: 650 mg Aspirin (Aspirin Ec Tab*) 81 mg PO DAILY WITH MEAL [facility] Last Admin: 10/16/18 08:40 Dose: 81 mg Atorvastatin Calcium (Lipitor*) 10 mg PO QPM [facility]; Protocol Last Admin: 10/15/18 18:16 Dose: 10 mg Digoxin (Lanoxin Tab*) 0.125 mg PO DAILY@1700 [facility] Last Admin: 10/15/18 18:16 Dose: 0.125 mg Docusate Sodium (Colace Cap*) 100 mg PO DAILY PRN PRN Reason: CONSTIPATION Acyclovir Sodium 800 mg/ (Sodium Chloride) 266 mls @ 266 mls/hr IVPB Q8H [facility] Last Admin: 10/16/18 12:40 Dose: 266 mls/hr Ceftriaxone Sodium 1 gm/ (Sodium Chloride) 50 mls @ 200 mls/hr IVPB Q24H [facility] Last Admin: 10/15/18 15:59 Dose: 200 mls/hr Metoprolol Succinate ([facility] Xl Tab*) [facility] Last Admin: 10/16/18 08:40 Dose: 12.5 mg Metoprolol Tartrate (Lopressor Iv*) 5 mg IV Q4HR PRN PRN Reason: HEART RATE/PULSE Last Admin: 10/13/18 05:16 Dose: 5 mg Omeprazole (Prilosec Cap*) [facility] Last Admin: 10/16/18 08:40 Dose: 20 mg Pharmacy Profile Note (Coumadin Per Pharmacy*) 1 note FOLLOW UP .PER PHARMACY PROTOC [facility]; Protocol Potassium Chloride (Klor Con Er Tab*) 20 meq PO DAILY [facility] Last Admin: 10/16/18 08:33 Dose: Not Given Vital Signs - 8 hr 10/16/18 10/16/18 11:32 15:12 Temperature 98.2 F 97.7 F Pulse Rate 73 84 Respiratory 20 20 Rate Blood Pressure 103/74 100/71 (mmHg) O2 Sat by Pulse 95 98 Oximetry Oxygen Devices in Use Now: Nasal Cannula Appearance: NAD, sitting in chair. Eyes: No Scleral Icterus Ears/Nose/Mouth/Throat: NL Teeth, Lips, Gums Neck: NL Appearance and Movements; NL JVP Respiratory: Symmetrical Chest Expansion and Respiratory Effort, Clear to Auscultation Cardiovascular: NL Sounds; No Murmurs; No JVD, RRR, No Edema Abdominal: NL Sounds; No Tenderness; No Distention, No Hepatosplenomegaly Extremities: No Edema Skin: No Rash or Ulcers, - Neurological: Alert and Oriented x 3, NL Sensation, NL Muscle Strength and Tone Lines/Tubes/Other Access: Clean, Dry and Intact [place] Nutrition: Taking PO's Result Diagrams: 10/15/18 05:03 10/16/18 04:56 Additional Lab and Data: Laboratory Results - last 24 hr 10/16/18 10/16/18 04:55 04:56 INR (Anticoag Therapy) 3.56 H Sodium 138 Potassium 3.7 Chloride 106 Carbon Dioxide 27 Anion Gap 5 BUN 15 Creatinine 0.74 Est GFR ( Amer) 123.1 Est GFR (Non-Af Amer) 101.8 BUN/Creatinine Ratio 20.3 H Glucose 94 Calcium 7.7 L Magnesium 2.2 Microbiology and Other Data: Microbiology 10/12/18 17:31 Blood Venous Aerobic Blood Culture - Preliminary No Growth Day 4 10/12/18 17:31 Blood Venous Anaerobic Blood Culture - Preliminary No Growth Day 4 10/12/18 17:15 Blood Venous Aerobic Blood Culture - Preliminary No Growth Day 4 10/12/18 17:15 Blood Venous Anaerobic Blood Culture - Preliminary No Growth Day 4 10/12/18 18:50 Cerebral Spinal Fluid CSF Gram Stain (Tube 3) - Final 10/12/18 18:50 Cerebral Spinal Fluid CSF Culture - Final No Growth Day 4 10/13/18 03:13 Nasal Nasal Screen MRSA (PCR) - Final Mrsa Not Detected 10/12/18 17:28 Nasopharyngeal Influenza Types A,B Antigen - Final Specimen received for Influenza A/B Molecular testing Assess/Plan/Problems-Billing Assessment: 78 year old male with PMH afib (on coumadin), subarachnoid hemorrhage, hx prostate ca who presented to the ED with 1 wk history of weakness, fatigue fevers, urinary incontinence, altered mental status. Admitted for fever of unknown origin (T max 105), s/p doxy, ceftriaxone, acyclovir. Now lost IV access. CT chest abd/pelvis with small b/l pleural effusions. - Patient Problems (1) Fever Current Visit: Yes Status: Acute Code(s): R50.9 - FEVER, UNSPECIFIED SNOMED Code(s): 391869768 Comment: - Fever curve improved today though still high last night. No current leukocytosois - No clear source identified so far. CT chest abd pelvis with po and IV contrast demonstrates small b/l pleural effusion. No cough or SOB hx. Uncharacteristic urinary incontinence on admission. - Blood cultures and CSF no growth to date, UA negative, Flu negative, Hepatitis A, B, C negative. Tick pannel negative so far and CMV negative. Lyme serology negative - stop IV doxy (also lost IV access). - Appreciated ID recommendations - Acyclovir IV held as IV access lost. f/u until CSF HSV negative - Will repeat CRP, add ferritin (HLH?), add ACE, add ANCA, add RF, Add VRDL CSF , Add FTA (2) Altered mental status Current Visit: Yes Status: Acute Code(s): R41.82 - ALTERED MENTAL STATUS, UNSPECIFIED SNOMED Code(s): 877345334 Comment: - resolved. Did have episode of aphasia in assoiation with temp 104. Brain CT with no acute intracranial hemmorhage. Aphasia resolved. (3) Hypoxia Current Visit: Yes Status: Acute Code(s): R09.02 - HYPOXEMIA SNOMED Code(s ): 751826054 Comment: resolved, on 0L currently - Secondary to pulmonary edema. Received 40 mg IV lasix on 10/13. . No SOB, tachypnea or rales. BNP 207 (4) LFTs abnormal Current Visit: Yes Status: Acute Code(s): R94.5 - ABNORMAL RESULTS OF LIVER FUNCTION STUDIES SNOMED Code(s): 777841683 Comment: - repeat LFTs tomorrow - No abd pain, N/V. - RUQ sonogram negative - Hepatitis pannel negative (5) Thrombocytopenia Current Visit: Yes Status: Acute Code(s): D69.6 - THROMBOCYTOPENIA, UNSPECIFIED SNOMED Code(s): 911386459 Comment: - 105 yesterday infectious vs inflammatory (6) Amnesia Current Visit: No Status: Acute Priority: High Onset Date: 08/24/14 Comment: attests last episode was 20 years ago. (7) DVT prophylaxis Current Visit: No Status: Acute Code(s): PCB0727 - SNOMED Code(s): 842889900 Comment: - On coumadin (8) Full code status Current Visit: No Status: Acute Code(s): Z78.9 - OTHER SPECIFIED HEALTH STATUS SNOMED Code(s): 264221336 (9) Atrial fibrillation Current Visit: No Status: Chronic Code(s): I48.91 - UNSPECIFIED ATRIAL FIBRILLATION SNOMED Code(s): 66120852 Comment: - Rate controlled on metoprolol and digoxin - Anticoagulation with coumadin(hold) as INR supratherapeutic therapeutic. Dosing per pharmacy. Status and Disposition: Inpatient. Anticipate discharge to home when medically stable.
[2018-10-16] MEDS: Atorvastatin* 10 MG TAB PO SCH (17:55)
[2018-10-16] MEDS: Digoxin TAB* 0.125 MG PO SCH (17:55)
[2018-10-16] MEDS: cefTRIAXone(*) 1 GM in NS 0.9% 50 ML* 50 ML IVPB SCH (21:50)
[2018-10-17 06:52] LABS: INR 3.46 (0.77-1.02)
[2018-10-17] MEDS: Metoprolol Succinate XL TAB* 25 MG PO SCH (07:45)
[2018-10-17] MEDS: Omeprazole CAP* 20 MG PO SCH (07:45)
[2018-10-17] MEDS: Potassium Chlor TAB* 20 MEQ TAB.ER PO SCH ×2 (07:46→07:48)
[2018-10-17] MEDS: Aspirin EC TAB* 81 MG TAB.EC PO SCH (07:46)
[2018-10-17] MEDS ORDERED: cefTRIAXone(*) 1 GM in NS 0.9% 50 ML* 50 ML IVPB SCH ×2 (09:00→14:00)
--- NOTE | 2018-10-17 09:55 | PN ---
Progress Note - Progress Note Date of Service: 10/17/18 SOAP: Subjective: CC: fever HPI: 78 yo man with encephalopathy and fever; mental status improved, fever continue nightly. Appetite decreased. No shaking chills, pain, or diarrhea. Objective: Vital Signs Temp 36.9 C 10/17/18 07:39 Pulse 83 10/17/18 07:39 Resp 18 10/17/18 07:58 BP 128/88 10/17/18 07:39 Pulse Ox 98 10/17/18 07:39 Intake & Output 10/16/18 10/17/18 10/17/18 18:59 06:59 18:59 Intake Total 820 0 Output Total 450 2075 200 Balance 370 -200 Intake: IV Fluids 10 ABX - DOXYCYCLINE 10 IVPB 250 ABX - DOXYCYCLINE 250 Oral 560 0 Output: [place] 450 2075 200 Other: # Bowel Movements 1 Estimated Stool Amount Large Gen:awake, no distress HEENT: no thrush Neuro: AAOx3 CN 2-12 intact Heart:RRR no murmur Lungs:CTA BL Abd: +BS NTND soft Skin: no rash LN: palpable or visible LN Laboratory Results - last 24 hr 10/17/18 10/17/18 05:59 05:59 INR (Anticoag Therapy) 3.46 H Ferritin 234.2 Total Bilirubin 0.70 Direct Bilirubin 0.20 H Indirect Bilirubin 0.5 AST 102 H ALT 99 H Alkaline Phosphatase 179 H Lactate Dehydrogenase 353 H C-Reactive Protein 99.90 H Total Protein 5.3 L Albumin 2.5 L Globulin 2.8 Albumin/Globulin Ratio 0.9 L Rheumatoid Factor < 10 Tick PCR panel negative Assessment: 1. Septic encephalopathy, present on admission, resolved 2. Fever, ongoing with thromboctyopenia and transaminitis; diff dx viral vs culture negative endocarditis or auto-inflammatory 3. presence of pacemaker Plan: 1. continue acyclovir, can stop if CSF HSV PCR is negative. 2. EVER if able, malaria smear, autoimmune workup pending 35 minutes floor time >50% face to face in counseling with patient and discussion with Dr Nichols
[2018-10-17] MEDS: Acyclovir IV(*) 800 MG in NS 0.9% 250 ML* 250 ML IVPB SCH ×2 (10:22→17:26)
[2018-10-17] MEDS: Acetaminophen TAB* 325 MG PO PRN (14:17)
[2018-10-17 15:19] LABS: RBC Parasite Smear No Parasites Seen (No Parasite)
[2018-10-17] MEDS ORDERED: Warfarin TAB(*) 1 MG PO ONE (17:00)
[2018-10-17] MEDS: Digoxin TAB* 0.125 MG PO SCH (17:25)
[2018-10-17] MEDS: Atorvastatin* 10 MG TAB PO SCH (17:25)
--- NOTE | 2018-10-17 19:23 | PN ---
Subjective Date of Service: 10/17/18 Interval History: midline placed 1/4 of original 10/12 BCx with Staph not MRSA or Staph Aureus. Midline placed. developed another fever, with rigors, Afib with RVR improved with 5mg IV lopressor Cftx restarted. Dr. Ulloa consulted for EVER, to be done tomorrow. Objective Active Medications: Acetaminophen (Tylenol Tab*) 650 mg PO Q4H PRN PRN Reason: FEVER/PAIN Last Admin: 10/17/18 14:17 Dose: 650 mg Acetaminophen (Tylenol Supp*) 650 mg [place] Q6H PRN PRN Reason: FEVER Last Admin: 10/13/18 02:45 Dose: 650 mg Aspirin (Aspirin Ec Tab*) 81 mg PO DAILY WITH MEAL [facility] Last Admin: 10/17/18 07:46 Dose: 81 mg Atorvastatin Calcium (Lipitor*) 10 mg PO QPM [facility]; Protocol Last Admin: 10/17/18 17:25 Dose: 10 mg Digoxin (Lanoxin Tab*) 0.125 mg PO DAILY@1700 [facility] Last Admin: 10/17/18 17:25 Dose: 0.125 mg Docusate Sodium (Colace Cap*) 100 mg PO DAILY PRN PRN Reason: CONSTIPATION Acyclovir Sodium 800 mg/ (Sodium Chloride) 266 mls @ 266 mls/hr IVPB Q8H [facility] Last Admin: 10/17/18 17:26 Dose: 266 mls/hr Ceftriaxone Sodium 1 gm/ (Sodium Chloride) 50 mls @ 200 mls/hr IVPB Q24H [facility] Last Admin: 10/17/18 15:05 Dose: 200 mls/hr Metoprolol Succinate ([facility]rol Xl Tab*) [facility] Last Admin: 10/17/18 07:45 Dose: 12.5 mg Metoprolol Tartrate (Lopressor Iv*) 5 mg IV Q4HR PRN PRN Reason: HEART RATE/PULSE Last Admin: 10/13/18 05:16 Dose: 5 mg Omeprazole (Prilosec Cap*) 20 mg PO QAM [facility] Last Admin: 10/17/18 07:45 Dose: 20 mg Pharmacy Profile Note (Coumadin Per Pharmacy*) 1 note FOLLOW UP .PER PHARMACY PROTOC [facility]; Protocol Potassium Chloride (Klor Con Er Tab*) 20 meq PO DAILY [facility] Last Admin: 10/17/18 07:48 Dose: Not Given Vital Signs - 8 hr 10/17/18 10/17/18 10/17/18 11:22 13:42 13:55 Temperature 98.3 F 98.5 F 100.9 F Pulse Rate 90 Respiratory 20 Rate Blood Pressure 94/56 (mmHg) O2 Sat by Pulse 95 Oximetry 10/17/18 10/17/18 10/17/18 14:01 14:10 17:25 Temperature Pulse Rate 129 90 Respiratory Rate Blood Pressure 122/82 (mmHg) O2 Sat by Pulse 95 Oximetry Oxygen Devices in Use Now: Nasal Cannula Appearance: rigoring initially, later NAD Eyes: No Scleral Icterus, PERRLA Ears/Nose/Mouth/Throat: NL Teeth, Lips, Gums Neck: NL Appearance and Movements; NL JVP, Trachea Midline Respiratory: - - anterior CTAB, no wheezing or rhonchi. Cardiovascular: - - irregularly irregular, tachycardic, no m/r/g Abdominal: NL Sounds; No Tenderness; No Distention, No Hepatosplenomegaly Extremities: - - UE edematous, trace LE Skin: No Rash or Ulcers Neurological: Alert and Oriented x 3, NL Sensation, NL Muscle Strength and Tone Nutrition: Taking PO's Result Diagrams: 10/15/18 05:03 10/16/18 04:56 Additional Lab and Data: Laboratory Results - last 24 hr 10/15/18 10/17/18 10/17/18 05:03 05:59 05:59 Hem Pathologist Commnt INR (Anticoag Therapy) 3.46 H Ferritin 234.2 Total Bilirubin 0.70 Direct Bilirubin 0.20 H Indirect Bilirubin 0.5 AST 102 H ALT 99 H Alkaline Phosphatase 179 H Lactate Dehydrogenase 353 H C-Reactive Protein 99.90 H Total Protein 5.3 L Albumin 2.5 L Globulin 2.8 Albumin/Globulin Ratio 0.9 L Rheumatoid Factor < 10 Microbiology and Other Data: Microbiology 10/12/18 17:15 Blood Venous Aerobic Blood Culture - Final No Growth Day 5 10/12/18 17:15 Blood Venous Anaerobic Blood Culture - Final No Growth Day 5 10/12/18 17:31 Blood Venous Aerobic Blood Culture - Preliminary 10/12/18 17:31 Blood Venous Anaerobic Blood Culture - Final No Growth Day 5 10/12/18 17:31 Blood Venous Blood MRSA/MSSA (PCR) - Final Mrsa Negative S.aureus Negative 10/12/18 18:50 Cerebral Spinal Fluid CSF Gram Stain (Tube 3) - Final 10/12/18 18:50 Cerebral Spinal Fluid CSF Culture - Final No Growth Day 4 10/13/18 03:13 Nasal Nasal Screen MRSA (PCR) - Final Mrsa Not Detected 10/12/18 17:28 Nasopharyngeal Influenza Types A,B Antigen - Final Specimen received for Influenza A/B Molecular testing Assess/Plan/Problems-Billing Assessment: 78 year old male with PMH afib (on coumadin), s/p PPM, subarachnoid hemorrhage, hx prostate ca who presented to the ED with 1 wk history of weakness, fatigue fevers, urinary incontinence, altered mental status. Admitted for fever of unknown origin (T max 105).CT chest abd/pelvis with small b/l pleural effusions. 1/4 of original Bcx now with GPC (not staph aureus or MRSA. Adding back vancomycin, planned EVER 10/18. - Patient Problems (1) Fever Current Visit: Yes Status: Acute Code(s): R50.9 - FEVER, UNSPECIFIED SNOMED Code(s): 059203715 Comment: - Fever and rigoring today. Bcx drawn again. GPC 1/4 (not MRSA or staph aureus) from 10/12 now positive on 5th day. Vancomycin restarted, cftx stopped. could be Staph Epi endocarditis?. EVER planned - CT chest abd pelvis with po and IV contrast demonstrates small b/l pleural effusion. - CSF no growth to date, UA negative, Flu negative, Hepatitis A, B, C negative. Tick pannel negative. CMV negative. Lyme serology negative. - Appreciate ID recommendations - stopping Acyclovir IV. f/u CSF HSV - repeat CRP down to 99 , ferritin wnl, f/u ACE, f/u ANCA, wnl RF, f/u VRDL CSF , f/u FTA (2) Altered mental status Current Visit: Yes Status: Acute Code(s): R41.82 - ALTERED MENTAL STATUS, UNSPECIFIED SNOMED Code(s): 077837620 Comment: - resolved. Did have episode of aphasia in assoiation with temp 104. Brain CT with no acute intracranial hemmorhage. Aphasia resolved. (3) Hypoxia Current Visit: Yes Status: Acute Code(s): R09.02 - HYPOXEMIA SNOMED Code(s ): 573436614 Comment: lasix 20mg po daily x2 days given edematous UE and oxygen req. daily weight. Received 40 mg IV lasix on 10/13. BNP 207 (4) LFTs abnormal Current Visit: Yes Status: Acute Code(s): R94.5 - ABNORMAL RESULTS OF LIVER FUNCTION STUDIES SNOMED Code(s): 285344061 Comment: - repeat LFTs still modestly elevated. - No abd pain, N/V. - RUQ sonogram negative - Hepatitis pannel negative (5) Thrombocytopenia Current Visit: Yes Status: Acute Code(s): D69.6 - THROMBOCYTOPENIA, UNSPECIFIED SNOMED Code(s): 024074654 Comment: - 105 infectious vs inflammatory (6) Amnesia Current Visit: No Status: Acute Priority: High Onset Date: 08/24/14 Comment: attests last episode was 20 years ago. (7) DVT prophylaxis Current Visit: No Status: Acute Code(s): CDR0638 - SNOMED Code(s): 416683759 Comment: - On coumadin (8) Full code status Current Visit: No Status: Acute Code(s): Z78.9 - OTHER SPECIFIED HEALTH STATUS SNOMED Code(s): 941065851 (9) Atrial fibrillation Current Visit: No Status: Chronic Code(s): I48.91 - UNSPECIFIED ATRIAL FIBRILLATION SNOMED Code(s): 14696990 Comment: - Rate controlled on metoprolol and digoxin but did need 5mg lopressor today. recheck digoxin level in AM. - Anticoagulation with coumadin(hold) as INR supratherapeutic therapeutic. Dosing per pharmacy. Status and Disposition: Inpatient. Anticipate discharge to home when medically stable.
[2018-10-17] MEDS ORDERED: Vancomycin per Pharmacy* NOTE FOLLOW UP SCH (20:00)
[2018-10-17] MEDS ORDERED: Vancomycin(*) 1,750 MG in NS 0.9% 250 ML* 250 ML IVPB ONE (20:30)
--- NOTE | 2018-10-17 21:50 | CONS ---
CONSULTATION REPORT: DATE OF CONSULT: 10/17/18 REASON FOR CONSULT: Fevers. HISTORY OF PRESENT ILLNESS: This is an 78-year-old male who was admitted on the after several presentations to the emergency room with severe fever. He has very little recollection of his pre-hospital course. He said he was in [place] for the weekend, then suddenly developed fevers. Family report was that he was fatigued and weak for 1 week prior to admission and having shaking chills and rigors. Other than the fatigue and weakness, no clear focal symptoms , no confusion, no seizures. He had progressed to the point where it was difficult for him to walk or stand before he was admitted after several visits to the emergency room. He was placed on broad-spectrum antibiotics and given supportive care. Dr. Tomlinson consulted on day #2 of his hospitalization. Diagnosis at that time was fevers and intermittent encephalopathy, the broad differential diagnoses including CMV, bacterial infection, tick-borne illness. He had additional diagnostic studies including serologic evaluation negative for Lyme and babesiosis, negative hepatitis panel, influenza and CMV. He has a pacemaker and a transesophageal echocardiogram was ordered, but I do not see results at this time. He had chemistries that included increased LFTs and alkaline phosphatase at 179, ALT 99, AST 102. He had a ferritin of 234. An LDH was sent that was 353. CBCs include normal white blood cell count with increased monocytes, mild anemia that is normocytic and thrombocytopenia with platelet count of 91,000 yesterday and 105,000 today for baseline of over 200, 000. He had an ESR of 41 and a ferritin of 234 with an elevated C-reactive protein of 99 giving him a kind of moderate inflammatory markers. He had a rheumatoid factor that was negative. He had an LP done that showed a mildly elevated total protein but otherwise was negative. Blood cultures have been negative. Prior to this week, he states he was feeling well. He has no history of progressive fatigue, fevers or chills for more than a week. He has a remote history of night sweats but none recently. His weight has been stable. He has not noted any lymphadenopathy and he has had no skin rashes at home. He has a history of prostate cancer, but his PSA's have been negative. He has had no recent change in bowel function. He is a nonsmoker. He had a CT scan of the chest, abdomen, and pelvis done on the . He has small bilateral pleural effusions. He has a normal size spleen, no visible lymphadenopathy. Hematology consulted to evaluate for possible occult malignancy. PAST MEDICAL HISTORY: 1. Atrial fibrillation, with permanent pacemaker. 2. Prostate cancer. 3. GERD. 4. Subarachnoid hemorrhage 4 years ago. PAST SURGICAL HISTORY: Pacemaker placement and prostatectomy. ALLERGIES: None. FAMILY HISTORY: COPD. Malignancy in his father. SOCIAL HISTORY: Has a significant other and lives in [place]. Recent trip to [place]. No smoking. Occasional drinking. REVIEW OF SYSTEMS: Review of systems as discussed in HPI. Neurologically, he is oriented on my exam but per nurses' report, was more disoriented earlier in the day. PHYSICAL EXAM: Vital Signs: Temperature 100.9, BP 122/82, pulse 90, respirations 20. HEENT: Mucosa moist, no lesions. No cervical or supraclavicular lymphadenopathy. Nodes: No axillary or inguinal lymphadenopathy. Lungs: Clear to auscultation. Heart: Regular rate and rhythm. S1 and S2 (regular on my exam at this time). Abdomen: No hepatosplenomegaly. Good bowel sounds. Nontender. Skin: No overt lesions. DIAGNOSTIC STUDIES/LAB DATA: As noted above. He also had SPEP done in March that was negative. ASSESSMENT AND PLAN: An 78-year-old male who presents with fevers now for almost 2 weeks associated with an intermittent encephalopathy. He has had infectious disease consultation but no clear source identified. It is reasonable to consider occult malignancy as a source of his fevers. It has been most commonly seen with Hodgkin disease and non-Hodgkin lymphoma and with B -symptoms. However, I do not feel any lymph nodes on exam and his CT scan does not show lymphadenopathy or splenomegaly. The time course of his symptoms, sudden onset, is more consistent with infection or immune disease then malignancy unless he has a very aggressive tumor and I do not see evidence for that The elevated LDH is concerning but it may be secondary to his liver disease. Thrombocytopenia is likely consumptive. 1. He seems to be improving over time and if he continues to improve, I would not evaluate further from a hematologic standpoint. 2. If symptoms are persistent and rheumatologic and infectious evaluation is negative, we could perform a bone marrow biopsy. 3. Rheumatoid factor negative, ESR is 41, we will send ACE if the ACE is not already done. [id number]/CPS #: [id number] MTDD
--- NOTE | 2018-10-18 00:02 | PN ---
Hospitalist Progress Note Date of Service: 10/18/18 staff called reg pt trying to get out of bed to urinate he has inc and has been very weak high risk of fall---> catherine reinserted ( could not tolerate condem catheter )
[2018-10-18] MEDS ORDERED: Vancomycin Trough Check NOTE FOLLOW UP ONE (08:30)
[2018-10-18] MEDS ORDERED: Vancomycin(*) 1,250 MG in NS 0.9% 250 ML* 250 ML IVPB SCH (09:00)
[2018-10-18] MEDS ORDERED: Midazolam* 1 MG/ML 10 ML VIAL (10 MG) ONE (11:25)
[2018-10-18] MEDS ORDERED: Naloxone* 0.4 MG/ML 1 ML VIAL ONE (11:25)
[2018-10-18] MEDS ORDERED: Flumazenil* 0.1 MG/ML 5 ML MDV ONE (11:25)
[2018-10-18] MEDS ORDERED: Lidocaine 2% VISCOUS* 15 ML UDC ONE ×2 (11:25→12:23)
[2018-10-18] MEDS ORDERED: fentaNYL* 50 MCG/ML 2 ML VIAL (100 MCG VIAL) ONE ×2 (11:25→11:39)
[2018-10-18] MEDS ORDERED: Midazolam* 1 MG/ML 2 ML VIAL (2 MG) ONE ×2 (11:39→12:46)
[2018-10-18] MEDS ORDERED: fentaNYL* 50 MCG/ML 2 ML VIAL (100 MCG VIAL) IV PRN (11:56)
[2018-10-18] MEDS ORDERED: Naloxone* 0.4 MG/ML 1 ML VIAL IV PRN (11:56)
[2018-10-18] MEDS ORDERED: Ondansetron INJ* 2 MG/ML VIAL IV PRN (11:56)
[2018-10-18] MEDS ORDERED: Acetaminophen TAB* 325 MG PO PRN (11:56)
[2018-10-18] MEDS ORDERED: Famotidine IV* 10 MG/ML 2 ML (20 mg) IV SLOW PU ONE (11:57)
[2018-10-18] MEDS ORDERED: Famotidine IV* 10 MG/ML 2 ML (20 mg) ONE (12:04)
[2018-10-18] MEDS: Metoprolol Succinate XL TAB* 25 MG PO SCH (12:15)
[2018-10-18] MEDS ORDERED: Lidocaine 4% TOPICAL* 50 ML TOP.SOLN ONE (12:23)
[2018-10-18 15:56] LABS: INR 2.41 (0.77-1.02)
--- NOTE | 2018-10-18 17:03 | PN ---
Subjective Date of Service: 10/18/18 Interval History: Pt feels well. Noted b/l hands and ankles swollen. Had low grade fever last night. Denies pain. C/o generalized weakness Objective Active Medications: Acetaminophen (Tylenol Tab*) 650 mg PO Q4H PRN PRN Reason: FEVER/PAIN Last Admin: 10/17/18 14:17 Dose: 650 mg Acetaminophen (Tylenol Supp*) 650 mg [place] Q6H PRN PRN Reason: FEVER Last Admin: 10/13/18 02:45 Dose: 650 mg Aspirin (Aspirin Ec Tab*) 81 mg PO DAILY WITH MEAL [facility] Last Admin: 10/17/18 07:46 Dose: 81 mg Atorvastatin Calcium (Lipitor*) 10 mg PO QPM [facility]; Protocol Last Admin: 10/17/18 17:25 Dose: 10 mg Digoxin (Lanoxin Tab*) 0.125 mg PO DAILY@1700 [facility] Last Admin: 10/17/18 17:25 Dose: 0.125 mg Docusate Sodium (Colace Cap*) 100 mg PO DAILY PRN PRN Reason: CONSTIPATION Furosemide (Lasix Tab*) 20 mg PO DAILY [facility] Stop: 10/19/18 09:01 Metoprolol Succinate (Toprol Xl Tab*) 12.5 mg PO QAM [facility] Last Admin: 10/18/18 12:15 Dose: 12.5 mg Metoprolol Tartrate (Lopressor Iv*) 5 mg IV Q4HR PRN PRN Reason: HEART RATE/PULSE Last Admin: 10/13/18 05:16 Dose: 5 mg Omeprazole (Prilosec Cap*) 20 mg PO QAM [facility] Last Admin: 10/17/18 07:45 Dose: 20 mg Pharmacy Profile Note (Coumadin Per Pharmacy*) 1 note FOLLOW UP .PER PHARMACY PROTOC [facility]; Protocol Pharmacy Profile Note (Vancomycin Trough Check) 1 note FOLLOW UP 0830 ONE Stop: 10/19/18 08:31 Potassium Chloride (Klor Con Er Tab*) 20 meq PO DAILY [facility] Last Admin: 10/17/18 07:48 Dose: Not Given Vital Signs - 8 hr 10/18/18 10/18/18 10/18/18 11:20 13:12 13:13 Temperature 99.5 F 98.4 F Pulse Rate 98 92 79 Respiratory 20 14 Rate Blood Pressure 126/89 113/70 (mmHg) O2 Sat by Pulse 92 95 95 Oximetry 10/18/18 10/18/18 10/18/18 13:15 13:20 13:30 Temperature Pulse Rate 93 88 85 Respiratory 10 18 20 Rate Blood Pressure 113/78 113/77 118/81 (mmHg) O2 Sat by Pulse 95 94 96 Oximetry 10/18/18 10/18/18 10/18/18 13:45 14:00 14:01 Temperature Pulse Rate 84 86 89 Respiratory 16 16 21 Rate Blood Pressure 117/80 122/84 (mmHg) O2 Sat by Pulse 96 95 95 Oximetry 10/18/18 10/18/18 14:15 14:30 Temperature Pulse Rate 90 94 Respiratory 16 22 Rate Blood Pressure 119/77 110/80 (mmHg) O2 Sat by Pulse 95 94 Oximetry Oxygen Devices in Use Now: Nasal Cannula Appearance: 78 yo M in nAD, AAOx3 Eyes: No Scleral Icterus, PERRLA Ears/Nose/Mouth/Throat: NL Teeth, Lips, Gums, Mucous Membranes Moist Neck: NL Appearance and Movements; NL JVP, Trachea Midline Respiratory: Symmetrical Chest Expansion and Respiratory Effort, Clear to Auscultation Cardiovascular: NL Sounds; No Murmurs; No JVD, - - irregular Abdominal: NL Sounds; No Tenderness; No Distention, No Hepatosplenomegaly Lymphatic: No Cervical Adenopathy Extremities: No Clubbing, Cyanosis, - - b/l hand and trace b/l ankle edema Skin: - - scattered ecchymoses b/l forearms s/p venipunctures Neurological: Alert and Oriented x 3, NL Muscle Strength and Tone Result Diagrams: 10/15/18 05:03 10/16/18 04:56 Additional Lab and Data: Laboratory Results - last 24 hr 10/15/18 10/17/18 10/17/18 05:03 05:59 05:59 Hem Pathologist Commnt INR (Anticoag Therapy) 3.46 H Ferritin 234.2 Total Bilirubin 0.70 Direct Bilirubin 0.20 H Indirect Bilirubin 0.5 AST 102 H ALT 99 H Alkaline Phosphatase 179 H Lactate Dehydrogenase 353 H C-Reactive Protein 99.90 H Total Protein 5.3 L Albumin 2.5 L Globulin 2.8 Albumin/Globulin Ratio 0.9 L Rheumatoid Factor < 10 Microbiology and Other Data: Microbiology 10/12/18 17:15 Blood Venous Aerobic Blood Culture - Final No Growth Day 5 10/12/18 17:15 Blood Venous Anaerobic Blood Culture - Final No Growth Day 5 10/12/18 17:31 Blood Venous Aerobic Blood Culture - Preliminary 10/12/18 17:31 Blood Venous Anaerobic Blood Culture - Final No Growth Day 5 10/12/18 17:31 Blood Venous Blood MRSA/MSSA (PCR) - Final Mrsa Negative S.aureus Negative 10/12/18 18:50 Cerebral Spinal Fluid CSF Gram Stain (Tube 3) - Final 10/12/18 18:50 Cerebral Spinal Fluid CSF Culture - Final No Growth Day 4 10/13/18 03:13 Nasal Nasal Screen MRSA (PCR) - Final Mrsa Not Detected 10/12/18 17:28 Nasopharyngeal Influenza Types A,B Antigen - Final Specimen received for Influenza A/B Molecular testing Assess/Plan/Problems-Billing Assessment: 78 year old male with PMH afib (on coumadin), s/p PPM, subarachnoid hemorrhage, hx prostate ca who presented to the ED with 1 wk history of weakness, fatigue fevers, urinary incontinence, altered mental status. Admitted for fever of unknown origin (T max 105).CT chest abd/pelvis with small b/l pleural effusions. 1/4 of original Bcx now with [id number] contaminant, Vanc stopped 10/18/18 - Patient Problems (1) Fever Comment: - temp of 100.9 last night. Bcx drawn again. GPC 12/02 .-micrococcus from 10/12 Vancomycin restarted-stopped today after d/w ID., cftx stopped. EVER neg today - CT chest abd pelvis with po and IV contrast demonstrates small b/l pleural effusion. - CSF no growth to date, UA negative, Flu negative, Hepatitis A, B, C negative. Tick pannel negative. CMV negative. Lyme serology negative. - Appreciate ID recommendations - repeat CRP down to 99 , ferritin wnl, f/u ACE, f/u ANCA, wnl RF, f/u VRDL CSF , f/u FTA (2) Altered mental status Comment: - resolved. Did have episode of aphasia in association with temp 104. Brain CT with no acute intracranial hemmorhage. Aphasia resolved. (3) Thrombocytopenia Comment: improving infectious vs inflammatory (4) Atrial fibrillation Comment: - Rate controlled on metoprolol and digoxin - Anticoagulation with coumadin(hold) as INR supratherapeutic therapeutic. Dosing per pharmacy. (5) DVT prophylaxis Comment: - On coumadin Status and Disposition: Inpatient. Anticipate discharge to home when medically stable.
[2018-10-18] MEDS: Omeprazole CAP* 20 MG PO SCH (17:17)
[2018-10-18] MEDS: Furosemide TAB* 20 MG PO SCH (17:17)
[2018-10-18] MEDS: Potassium Chlor TAB* 20 MEQ TAB.ER PO SCH (17:18)
[2018-10-18] MEDS: Aspirin EC TAB* 81 MG TAB.EC PO SCH (17:24)
[2018-10-18] MEDS: Atorvastatin* 10 MG TAB PO SCH (17:24)
[2018-10-18] MEDS: Digoxin TAB* 0.125 MG PO SCH (17:24)
[2018-10-18] MEDS ORDERED: Warfarin TAB(*) 1 MG PO ONE (20:00)
[2018-10-19 05:32] LABS: ABS Basophils 0.1 10^3/ul (0-0.2); ABS Eosinophils 0.5 10^3/ul (0-0.6); ABS Lymphocytes 2.1 10^3/ul (1.0-4.8); ABS Monocytes 0.9 10^3/ul (0-0.8); ABS Neutrophils 4.2 10^3/ul (1.5-7.7); ABS Nucleated RBC 0 10^3/ul; Eosinophil % 5.9 % (0-6); Hematocrit 38 % (42-52); Hemoglobin 12.8 g/dl (14.0-18.0); Lymphocyte % 26.8 % (25-47); Mean Corpuscular HGB Conc 34 g/dl (31-36); Mean Corpuscular Hemoglobin 32 pg (27-31); Mean Corpuscular Volume 93 fL (80-94); Mean Platelet Volume 8.5 fL (7.4-10.4); Nucleated Red Blood Cells % 0.1; Platelet Count 151 10^3/ul (150-450); Red Blood Count 4.07 10^6/ul (4.00-5.40); Red Cell Distribution Width 14 % (10.5-15); White Blood Count 7.7 10^3/ul (3.5-10.8)
[2018-10-19 05:37] LABS: INR 2.35 (0.77-1.02)
[2018-10-19 06:00] LABS: EGFR Non-African American 65.1 (>60)
[2018-10-19] MEDS ORDERED: Vancomycin Trough Check NOTE FOLLOW UP ONE (08:30)
[2018-10-19] MEDS: Metoprolol Succinate XL TAB* 25 MG PO SCH (08:43)
[2018-10-19] MEDS: Furosemide TAB* 20 MG PO SCH (08:43)
[2018-10-19] MEDS: Omeprazole CAP* 20 MG PO SCH (08:43)
[2018-10-19] MEDS: Aspirin EC TAB* 81 MG TAB.EC PO SCH (08:43)
[2018-10-19] MEDS: Potassium Chlor TAB* 20 MEQ TAB.ER PO SCH ×2 (08:43→08:56)
--- NOTE | 2018-10-19 14:35 | PN ---
Subjective Date of Service: 10/19/18 Interval History: Pt c/o feeing generalized weakness and "sleepy " today. denies fevers Objective Active Medications: Acetaminophen (Tylenol Tab*) 650 mg PO Q4H PRN PRN Reason: FEVER/PAIN Last Admin: 10/17/18 14:17 Dose: 650 mg Acetaminophen (Tylenol Supp*) 650 mg [place] Q6H PRN PRN Reason: FEVER Last Admin: 10/13/18 02:45 Dose: 650 mg Aspirin (Aspirin Ec Tab*) 81 mg PO DAILY WITH MEAL [facility] Last Admin: 10/19/18 08:43 Dose: 81 mg Atorvastatin Calcium (Lipitor*) 10 mg PO QPM [facility]; Protocol Last Admin: 10/18/18 17:24 Dose: 10 mg Digoxin (Lanoxin Tab*) 0.125 mg PO DAILY@1700 [facility] Last Admin: 10/18/18 17:24 Dose: 0.125 mg Docusate Sodium (Colace Cap*) 100 mg PO DAILY PRN PRN Reason: CONSTIPATION Metoprolol Succinate (Toprol Xl Tab*) 12.5 mg PO QAM [facility] Last Admin: 10/19/18 08:43 Dose: 12.5 mg Metoprolol Tartrate (Lopressor Iv*) 5 mg IV Q4HR PRN PRN Reason: HEART RATE/PULSE Last Admin: 10/13/18 05:16 Dose: 5 mg Omeprazole (Prilosec Cap*) 20 mg PO QAM [facility] Last Admin: 10/19/18 08:43 Dose: 20 mg Pharmacy Profile Note (Coumadin Per Pharmacy*) 1 note FOLLOW UP .PER PHARMACY PROTOC [facility]; Protocol Potassium Chloride (Klor Con Er Tab*) 20 meq PO DAILY [facility] Last Admin: 10/19/18 08:56 Dose: Not Given Warfarin Sodium (Coumadin Tab(*)) 2 mg PO 1700 ONE Stop: 10/19/18 17:01 Vital Signs - 8 hr 10/19/18 10/19/18 07:22 10:56 Temperature 97.3 F 97.6 F Pulse Rate 81 84 Respiratory 18 20 Rate Blood Pressure 141/75 130/79 (mmHg) O2 Sat by Pulse 95 99 Oximetry Oxygen Devices in Use Now: None Appearance: 78 yo M in nAD, aAOx3 Eyes: No Scleral Icterus, PERRLA Ears/Nose/Mouth/Throat: NL Teeth, Lips, Gums, Mucous Membranes Moist Neck: NL Appearance and Movements; NL JVP, Trachea Midline Respiratory: Symmetrical Chest Expansion and Respiratory Effort Cardiovascular: NL Sounds; No Murmurs; No JVD, - - irregular Abdominal: NL Sounds; No Tenderness; No Distention Lymphatic: No Cervical Adenopathy Extremities: No Clubbing, Cyanosis, - - b/l hand and ankle edema improving Skin: No Nodules or Sclerosis Neurological: Alert and Oriented x 3, NL Muscle Strength and Tone Result Diagrams: 10/19/18 05:20 10/19/18 05:20 Additional Lab and Data: Laboratory Results - last 24 hr 10/15/18 10/17/18 10/17/18 05:03 05:59 05:59 Hem Pathologist Commnt INR (Anticoag Therapy) 3.46 H Ferritin 234.2 Total Bilirubin 0.70 Direct Bilirubin 0.20 H Indirect Bilirubin 0.5 AST 102 H ALT 99 H Alkaline Phosphatase 179 H Lactate Dehydrogenase 353 H C-Reactive Protein 99.90 H Total Protein 5.3 L Albumin 2.5 L Globulin 2.8 Albumin/Globulin Ratio 0.9 L Rheumatoid Factor < 10 Microbiology and Other Data: Microbiology 10/12/18 17:15 Blood Venous Aerobic Blood Culture - Final No Growth Day 5 10/12/18 17:15 Blood Venous Anaerobic Blood Culture - Final No Growth Day 5 10/12/18 17:31 Blood Venous Aerobic Blood Culture - Preliminary 10/12/18 17:31 Blood Venous Anaerobic Blood Culture - Final No Growth Day 5 10/12/18 17:31 Blood Venous Blood MRSA/MSSA (PCR) - Final Mrsa Negative S.aureus Negative 10/12/18 18:50 Cerebral Spinal Fluid CSF Gram Stain (Tube 3) - Final 10/12/18 18:50 Cerebral Spinal Fluid CSF Culture - Final No Growth Day 4 10/13/18 03:13 Nasal Nasal Screen MRSA (PCR) - Final Mrsa Not Detected 10/12/18 17:28 Nasopharyngeal Influenza Types A,B Antigen - Final Specimen received for Influenza A/B Molecular testing Assess/Plan/Problems-Billing Assessment: 78 year old male with PMH afib (on coumadin), s/p PPM, subarachnoid hemorrhage, hx prostate ca who presented to the ED with 1 wk history of weakness, fatigue fevers, urinary incontinence, altered mental status. Admitted for fever of unknown origin (T max 105).CT chest abd/pelvis with small b/l pleural effusions. 1/4 of original Bcx now with [id number] contaminant, Vanc stopped 10/18/18 - Patient Problems (1) Fever Comment: - afebrile past 24H. GPC 12/02 .-micrococcus from 10/12 Vancomycin restarted-stopped today after d/w ID., cftx stopped. EVER neg 10/18/18 - CT chest abd pelvis with po and IV contrast demonstrates small b/l pleural effusion. - CSF no growth to date, UA negative, Flu negative, Hepatitis A, B, C negative. Tick pannel negative. CMV negative. Lyme serology negative. - Appreciate ID recommendations - repeat CRP down to 99 , ferritin wnl, f/u ACE, f/u ANCA, wnl RF, f/u VRDL CSF , f/u FTA Plan to monitor with no antibiotics, possible d/c in aM (2) Altered mental status Comment: - resolved. Did have episode of aphasia in association with temp 104. Brain CT with no acute intracranial hemmorhage. Aphasia resolved. (3) Thrombocytopenia Comment: improving infectious vs inflammatory (4) Atrial fibrillation Comment: - Rate controlled on metoprolol and digoxin - Anticoagulation with coumadin.Dosing per pharmacy. (5) DVT prophylaxis Comment: - On coumadin Status and Disposition: Inpatient. Anticipate discharge to home when medically stable.
[2018-10-19] MEDS ORDERED: Warfarin TAB(*) 2 MG PO ONE (17:00)
[2018-10-19] MEDS: Digoxin TAB* 0.125 MG PO SCH (18:45)
[2018-10-19] MEDS: Atorvastatin* 10 MG TAB PO SCH (18:46)
[2018-10-20 06:06] LABS: Hematocrit 39 % (42-52); Hemoglobin 13.1 g/dl (14.0-18.0); Mean Corpuscular HGB Conc 34 g/dl (31-36); Mean Corpuscular Hemoglobin 32 pg (27-31); Mean Corpuscular Volume 94 fL (80-94); Mean Platelet Volume 8.8 fL (7.4-10.4); Platelet Count 172 10^3/ul (150-450); Red Blood Count 4.15 10^6/ul (4.00-5.40); Red Cell Distribution Width 14 % (10.5-15); White Blood Count 7.5 10^3/ul (3.5-10.8)
[2018-10-20 06:12] LABS: INR 2.11 (0.77-1.02)
[2018-10-20 06:24] LABS: EGFR Non-African American 64.4 (>60)
[2018-10-20] MEDS ORDERED: Potassium Chlor TAB* 20 MEQ TAB.ER PO ONE (08:50)
[2018-10-20] MEDS: Metoprolol Succinate XL TAB* 25 MG PO SCH (09:22)
[2018-10-20] MEDS: Omeprazole CAP* 20 MG PO SCH (09:22)
[2018-10-20] MEDS: Aspirin EC TAB* 81 MG TAB.EC PO SCH (09:22)
[2018-10-20] MEDS: Potassium Chlor TAB* 20 MEQ TAB.ER PO SCH (09:23)
--- NOTE | 2018-10-20 13:44 | PN ---
Subjective Date of Service: 10/20/18 Interval History: Pt still feels weak, but wants to go home and not to [facility]. Family (female significant other) present in the room stated that they are not ready for pt to come home today,despite being informed about it last night. Objective Active Medications: Acetaminophen (Tylenol Tab*) 650 mg PO Q4H PRN PRN Reason: FEVER/PAIN Last Admin: 10/17/18 14:17 Dose: 650 mg Acetaminophen (Tylenol Supp*) 650 mg MN Q6H PRN PRN Reason: FEVER Last Admin: 10/13/18 02:45 Dose: 650 mg Aspirin (Aspirin Ec Tab*) 81 mg PO DAILY WITH MEAL [facility] Last Admin: 10/20/18 09:22 Dose: 81 mg Atorvastatin Calcium (Lipitor*) 10 mg PO QPM [facility]; Protocol Last Admin: 10/19/18 18:46 Dose: 10 mg Digoxin (Lanoxin Tab*) 0.125 mg PO DAILY@1700 [facility] Last Admin: 10/19/18 18:45 Dose: 0.125 mg Docusate Sodium (Colace Cap*) 100 mg PO DAILY PRN PRN Reason: CONSTIPATION Metoprolol Succinate (Toprol Xl Tab*) 12.5 mg PO QAM [facility] Last Admin: 10/20/18 09:22 Dose: 12.5 mg Metoprolol Tartrate (Lopressor Iv*) 5 mg IV Q4HR PRN PRN Reason: HEART RATE/PULSE Last Admin: 10/13/18 05:16 Dose: 5 mg Omeprazole (Prilosec Cap*) 20 mg PO QAM [facility] Last Admin: 10/20/18 09:22 Dose: 20 mg Pharmacy Profile Note (Coumadin Per Pharmacy*) 1 note FOLLOW UP .PER PHARMACY PROTOC [facility]; Protocol Potassium Chloride (Klor Con Er Tab*) 20 meq PO DAILY [facility] Last Admin: 10/20/18 09:23 Dose: 20 meq Warfarin Sodium (Coumadin Tab(*)) 2 mg PO ONCE ONE Stop: 10/20/18 17:01 Vital Signs - 8 hr 10/20/18 10/20/18 08:00 08:15 Temperature 97.4 F Pulse Rate 115 Respiratory 18 16 Rate Blood Pressure 109/60 (mmHg) O2 Sat by Pulse 96 97 Oximetry Oxygen Devices in Use Now: None Appearance: 78 yo M in nAD, aAOx3 Eyes: No Scleral Icterus, PERRLA Ears/Nose/Mouth/Throat: NL Teeth, Lips, Gums, Mucous Membranes Moist Neck: NL Appearance and Movements; NL JVP, Trachea Midline Respiratory: Symmetrical Chest Expansion and Respiratory Effort, Clear to Auscultation Cardiovascular: NL Sounds; No Murmurs; No JVD, - - irregular Abdominal: NL Sounds; No Tenderness; No Distention Lymphatic: No Cervical Adenopathy Extremities: No Clubbing, Cyanosis, - - trace pedal edema b/l Skin: No Rash or Ulcers, No Nodules or Sclerosis Neurological: Alert and Oriented x 3, NL Muscle Strength and Tone Result Diagrams: 10/20/18 05:46 10/20/18 05:46 Additional Lab and Data: Laboratory Results - last 24 hr 10/15/18 10/17/18 10/17/18 05:03 05:59 05:59 Hem Pathologist Commnt INR (Anticoag Therapy) 3.46 H Ferritin 234.2 Total Bilirubin 0.70 Direct Bilirubin 0.20 H Indirect Bilirubin 0.5 AST 102 H ALT 99 H Alkaline Phosphatase 179 H Lactate Dehydrogenase 353 H C-Reactive Protein 99.90 H Total Protein 5.3 L Albumin 2.5 L Globulin 2.8 Albumin/Globulin Ratio 0.9 L Rheumatoid Factor < 10 Microbiology and Other Data: Microbiology 10/12/18 17:15 Blood Venous Aerobic Blood Culture - Final No Growth Day 5 10/12/18 17:15 Blood Venous Anaerobic Blood Culture - Final No Growth Day 5 10/12/18 17:31 Blood Venous Aerobic Blood Culture - Preliminary 10/12/18 17:31 Blood Venous Anaerobic Blood Culture - Final No Growth Day 5 10/12/18 17:31 Blood Venous Blood MRSA/MSSA (PCR) - Final Mrsa Negative S.aureus Negative 10/12/18 18:50 Cerebral Spinal Fluid CSF Gram Stain (Tube 3) - Final 10/12/18 18:50 Cerebral Spinal Fluid CSF Culture - Final No Growth Day 4 10/13/18 03:13 Nasal Nasal Screen MRSA (PCR) - Final Mrsa Not Detected 10/12/18 17:28 Nasopharyngeal Influenza Types A,B Antigen - Final Specimen received for Influenza A/B Molecular testing Assess/Plan/Problems-Billing Assessment: 78 year old male with PMH afib (on coumadin), s/p PPM, subarachnoid hemorrhage, hx prostate ca who presented to the ED with 1 wk history of weakness, fatigue fevers, urinary incontinence, altered mental status. Admitted for fever of unknown origin (T max 105).CT chest abd/pelvis with small b/l pleural effusions. 1/ of original Bcx now with [id number] contaminant, Vanc stopped 10/18/18 - Patient Problems (1) Fever Comment: - afebrile past 48. Cause of fever not identified, but it resolved. Off antibiotics for 2 days now. H. GPC 12/02 .-micrococcus from 10/12 likley contaminant. EVER neg 10/18/18 - CT chest abd pelvis with po and IV contrast demonstrates small b/l pleural effusion. - CSF no growth to date, UA negative, Flu negative, Hepatitis A, B, C negative. Tick pannel negative. CMV negative. Lyme serology negative. - Appreciate ID recommendations (2) Altered mental status Comment: - resolved. Did have episode of aphasia in association with temp 104. Brain CT with no acute intracranial hemmorhage. Aphasia resolved. (3) Thrombocytopenia Comment: improving infectious vs inflammatory (4) Atrial fibrillation Comment: - Rate controlled on metoprolol and digoxin - Anticoagulation with coumadin.Dosing per pharmacy. (5) DVT prophylaxis Comment: - On coumadin Status and Disposition: Inpatient. Anticipate discharge to home tomorrow
[2018-10-20] MEDS: KCL 20 MEQ/100 ML IVPREMIX* 20 MEQ/100 ML BAG IV SCH ×2 (14:53→17:29)
[2018-10-20] MEDS ORDERED: Warfarin TAB(*) 2 MG PO ONE (17:00)
[2018-10-20] MEDS: Digoxin TAB* 0.125 MG PO SCH (17:28)
[2018-10-20] MEDS: Atorvastatin* 10 MG TAB PO SCH (17:29)
[2018-10-21 05:55] LABS: INR 2.11 (0.77-1.02)
[2018-10-21] MEDS: Potassium Chlor TAB* 20 MEQ TAB.ER PO SCH (07:53)
[2018-10-21] MEDS: Omeprazole CAP* 20 MG PO SCH (07:53)
[2018-10-21] MEDS: Metoprolol Succinate XL TAB* 25 MG PO SCH (07:53)
[2018-10-21] MEDS: Aspirin EC TAB* 81 MG TAB.EC PO SCH (07:54)
[2018-10-21 12:16] VITALS: BP 91/63
[2018-10-21] MEDS ORDERED: Warfarin TAB(*) 2 MG PO ONE (17:00)
--- NOTE | 2018-10-21 22:15 | DS ---
CC: Dr. Syed; Dr. Tomlinson; Dr. Webster * DISCHARGE SUMMARY: DATE OF ADMISSION: 10/12/18 DATE OF DISCHARGE: 10/21/18 PRIMARY CARE PROVIDER: Dr. Webster. ATTENDING PHYSICIAN: Dr. Roman. MY ATTENDING FOR TODAY: Dr. Syed.* (DICTATED BY EVETTE PICKENS NP) HOSPITAL COURSE: This is an 78-year-old gentleman with a history of AFib, prostate cancer, TGA, GERD, subarachnoid hemorrhage in the past who came to the emergency department for complaint of fever. Please see the admitting H and P for further details. In short, the patient came to the ER with his significant other to be evaluated for his fever of unknown origin. He initially came to the ER and was sent home as there was no source. However, he came back the following day because he became weak and disoriented and then had a fall. The patient was admitted then for the fever of unknown origin. Again, there was no obvious source. He had lumbar puncture while in the emergency department because of his confusion and his higher fevers; however, the spinal fluid did not show any acute infective process in terms of meningeal irritation. He also had a multitude of labs done, tick panel, viral panels, hepatitis panel, encephalitis panel, cultures with Gram stains. He was imperially placed on acyclovir, Rocephin, and vancomycin and was also seen by Infectious Disease. The patient was maintained on antibiotics and antivirals. He was seen by Dr. Tomlinson on 10/14/18 initially for his encephalopathy and fever. His mentation began to improve; however, we still did not have an identifiable source. The acyclovir was ultimately stopped because his HSV, PCR was negative. The patient , however, was continued on oral doxycycline. He is also seen by Dr. Josse Toney of Hematology/Oncology as there was some concern for possibility of a malignant source for his fever primarily looking at non-Hodgkin's lymphoma or B- cell lymphoma; however, he did not have any appreciable lymph nodes upon exam and had no mediastinum nodes on imaging. At that point, again, his symptoms were resolving, so Oncology did not feel that the patient needed to have a bone marrow biopsy or further hematologic or oncologic workup. As of 10/20/18, the patient had been afebrile for more than 48 hours. He does complain of some general weakness; however, he declined going to short term rehab stating that his care at home with his significant other and family would be adequate. Also one side note, blood cultures in 1/4 bottles grew up micrococcus, but was viewed as likely a contaminant. The patient also underwent a EVER, which was negative. CT of the chest, abdomen and pelvis which was negative other than a small bilateral pleural effusion and again CSF with no growth and essentially all his workup at this point has been negative. All his labs were continuing to come back to normal. Thrombocytopenia resolved. His dental status continued to improve. The patient is stable for discharge back to home today. DISCHARGE DIAGNOSES: 1. Fever of unknown origin. Cause of fever was not identifiable. The patient is afebrile, off antibiotics. 2. Altered mental status likely secondary to fever, currently resolved. 3. Thrombocytopenia, which is again improved. 4. History of atrial fibrillation rate controlled and on Coumadin, currently stable. DISCHARGE MEDICATIONS: Include: 1. Tylenol 650 mg as needed q.6 hours. 2. Aspirin 81 mg daily. 3. Atorvastatin 10 mg daily. 4. Digoxin 0.125 mg daily. 5. Docusate 100 mg p.o. daily as needed. 6. Metoprolol succinate 12.5 mg daily. 7. Warfarin 2 mg p.o. daily. 8. Vitamin C 500 mg p.o. daily. 9. Vitamin D 1000 units p.o. daily. 10. Vitamin B12 1000 mcg p.o. daily. 11. Protonix 40 mg daily. 12. Potassium chloride 20 mEq p.o. daily. 13. Viagra 50 mg daily as needed. 14. Crestor 5 mg daily in the evening. 15. Zinc supplement 50 mg p.o. daily. REVIEW OF SYSTEMS: Ten-point review of systems is negative except as noted in the HPI. PHYSICAL EXAM: The patient is alert, in no acute distress. Vital signs are temperature 99.1, blood pressure 133/85, heart rate 82, respiratory rate 20, O2 saturation 96% on room air. HEENT: The patient is atraumatic, normocephalic. PERRLA with nonicteric sclerae. Neck is supple and nontender. No JVD noted. No carotid bruit auscultated. Cardiovascular: S1, S2 present. Rate and rhythm are irregular. Lungs are clear bilaterally to auscultation with no wheezing, rhonchi, or rales. Abdomen is soft, nontender, and nondistended. Positive bowel sounds in all 4 quadrants. is deferred. Musculoskeletal: There is no clubbing, no cyanosis, and no edema. He has +2 distal pulses palpable and a steady gait. Gross motor and sensation are intact. Neurologic: Grossly intact with no focal deficits. Psychiatric: He is cooperative and appropriate. LABORATORY DATA: WBCs 7.5, RBCs 4.15, hemoglobin 13.1, hematocrit 39, platelets 172. Sodium 139, potassium 3.3, chloride 103, BUN 19, creatinine 1.10 , glucose 101, calcium 8.8. AST 75, ALT 89, alk phos 175, CRP is 64.02, down from 125.24. Procalcitonin was mildly elevated on 10/15/18 at 1.8. IMAGING: Brain CT was negative for any acute process. Liver ultrasound dated 10/12/18 showed cholelithiasis without cholecystitis and a sonographically normal liver. Chest x-ray dated 10/13/18 showed mild pulmonary interstitial edema but no acute infected process. Repeat brain CT on 10/13/18 showed no acute intracranial abnormality. CT of chest, abdomen, and pelvis dated showed bilateral pleural effusions, right upper lobe and left superior lingular pulmonary nodules with followup chest CT in 12 months was recommended. Bilateral atrial dilatation. CT portion of the abdomen showed no acute CT findings to correlate with the patient's current symptomatology. Cholelithiasis and diverticulosis coli. DISPOSITION: The patient will be discharged to home in the care of his family. At this point, the patient has been off antibiotics for 48 hours with no complaints and his laboratories are coming back to normal. FOLLOWUPS: We suggest the patient follow up with his primary care provider, Dr. Webster, in the next 3 to 5 days after discharge and have repeat laboratories done. The patient's significant other was instructed to bring the patient back to the emergency department if he did develop another fever; however, at this point, again the symptoms seem to be resolving. DIET: The patient to have regular diet as tolerated. ACTIVITY: As tolerated. TIME SPENT: 35 minutes discharging the patient, coordinating with his significant other and hospital staff. EVETTE PICKENS, MAT LINKER [id number]/[facility] #: [id number] [facility]ITALMichele
== END 2018-10-21 15:08 | disposition home or self-care (01) | DRG 864 ==
LOC: ED 15:51 → MED 19:51 → ICU 10-13 02:25 → MEDTELE 10-13 17:30
PROVIDERS: ADMIT Pediatrics; ATTEND Internal Medicine
PROC: 009U3ZX Drainage of Spinal Canal, Percutaneous Approach, Diagnostic (ICD-10-PCS; principal; 2018-10-12)
PROC: B24BZZ4 Ultrasonography of Heart with Aorta, Transesophageal (ICD-10-PCS; 2018-10-18)
DX: R50.9 Fever, unspecified (principal); G93.41 Metabolic encephalopathy; J81.1 Chronic pulmonary edema; J90 Pleural effusion, not elsewhere classified; R47.01 Aphasia; I48.91 Unspecified atrial fibrillation; G45.4 Transient global amnesia; K21.9 Gastro-esophageal reflux disease without esophagitis; Z66 Do not resuscitate; E78.00 Pure hypercholesterolemia, unspecified; M19.90 Unspecified osteoarthritis, unspecified site; M10.9 Gout, unspecified; G62.9 Polyneuropathy, unspecified; F32.9 Major depressive disorder, single episode, unspecified; W01.0XXA Fall on same level from slipping, tripping and stumbling without subsequent striking against object, initial encounter; D64.9 Anemia, unspecified; D69.6 Thrombocytopenia, unspecified; K80.20 Calculus of gallbladder without cholecystitis without obstruction; K57.30 Diverticulosis of large intestine without perforation or abscess without bleeding; R91.8 Other nonspecific abnormal finding of lung field; R09.02 Hypoxemia; I95.9 Hypotension, unspecified; M25.562 Pain in left knee; M25.561 Pain in right knee; R07.9 Chest pain, unspecified; R74.0 Nonspecific elevation of levels of transaminase and lactic acid dehydrogenase [LDH]; Z85.46 Personal history of malignant neoplasm of prostate; Z95.0 Presence of cardiac pacemaker; Z80.9 Family history of malignant neoplasm, unspecified; Z83.6 Family history of other diseases of the respiratory system; Z87.01 Personal history of pneumonia (recurrent); Z85.89 Personal history of malignant neoplasm of other organs and systems; Z82.49 Family history of ischemic heart disease and other diseases of the circulatory system; Z72.89 Other problems related to lifestyle; Y92.002 Bathroom of unspecified non-institutional (private) residence as the place of occurrence of the external cause; Z79.01 Long term (current) use of anticoagulants; Z79.82 Long term (current) use of aspirin
CPT/HCPCS: 36415; 70450; 71045; 71260; 74177; 76705; 80048; 80053; 80074; 80076; 80162; 80202; 81003; 82140; 82728; 82945; 83516; 83605; 83615; 83735; 83880; 84145; 84157; 84484; 85025; 85027; 85060; 85610; 85652; 85730; 86038; 86140; 86431; 86592; 86618; 86644; 86645; 86780; 87015; 87040; 87070; 87077; 87150; 87205; 87207; 87476; 87529; 87641; 87798; 89051; 93005; 93306; 93312; 99223; 99285; A9270-GY; C8929; G8978-GP-CJ; G8979-GP-CH; J0133; J0692; J0696; J1160; J1940; J2250; J2310; J3010; J3370; J3475; J3480; J3490; Q9967

== ENCOUNTER 2019-01-13 11:36 | Observation (INO) | payer MEDICARE, OTHER ==
[2019-01-13] MEDS ORDERED: Nitroglycerin TAB 0.4 MG* 0.4 MG TAB SL ONE (12:16)
--- NOTE | 2019-01-13 12:33 | ED ---
HPI Chest Pain - HPI Summary HPI Summary: The pt is an 78 y/o M presenting to the ED with a chief complaint onset about 40 minutes ago rated at 4/10. He originally described it as heartburn but it moved up to his anterior L chest and his neck. The discomfort has somewhat subsided. He has had previous heart testing done which showed issues in the lower two chambers of his heart. 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 - History of Current Complaint Chief Complaint: EDChestPainROMI Hx Obtained From: Patient Onset/Duration: Started Hours Ago, Still Present Timing: Constant, Lasting Hours Initial Severity: Moderate Current Severity: Moderate Pain Intensity: 7 Pain Scale Used: 0-10 Numeric Chest Pain Location: Left Anterior Chest Pain Radiates: Yes Chest Pain Radiates To:: Neck Character: Burning, Other: - discomfort Aggravating Factor(s): Nothing Alleviating Factor(s): Nothing Associated Signs and Symptoms: Positive: Chest Pain, Edema - Additional Pertinent History Primary Care Physician: SHELLY - Allergy/Home Medications Allergies/Adverse Reactions: Allergies Allergy/AdvReac Type Severity Reaction Status Date / Time No Known Allergies Allergy Verified 10/12/18 15:59 Home Medications: Home Medications Digoxin TAB* [Lanoxin TAB*] 0.125 mg PO DAILY 01/13/19 [History Confirmed ] Nitroglycerin TAB 0.4 MG* 0.4 mg SL Q5M PRN 01/13/19 [History Confirmed 01/13/19 ] Ubidecarenone [Co Q-10] 200 mg PO DAILY 01/13/19 [History Confirmed 01/13/19] Zinc Gluconate [Zinc] 50 mg PO DAILY 01/13/19 [History Confirmed 01/13/19] PMH/Surg Hx/FS Hx/Imm Hx Previously Healthy: No Endocrine/Hematology History: Reports: Hx Anticoagulant Therapy Denies: Hx Diabetes Cardiovascular History: Reports: Hx Angina, Hx Hypercholesterolemia, Hx Syncope , Other Cardiovascular Problems/Disorders - AFIB Denies: Hx Congestive Heart Failure, Hx Coronary Artery Disease, Hx Hypertension, Hx Myocardial Infarction, Hx Pacemaker/ICD, Hx Valvular Heart Disease Respiratory History: Reports: Hx Pneumonia - x3 Denies: Hx Asthma, Hx Chronic Obstructive Pulmonary Disease (COPD), Other Respiratory Problems/Disorders - DENIES GI History: Reports: Hx Gastroesophageal Reflux Disease, Hx Gastrointestinal Bleed History: Reports: Other Problems/Disorders - prostatectomy Denies: Hx Dialysis, Hx Renal Disease Musculoskeletal History: Reports: Hx Arthritis, Hx Back Problems, Hx Gout - one bout of gout Sensory History: Reports: Hx Contacts or Glasses Denies: Hx Cataracts, Hx Vision Problem, Hx Deafness, Hx Hearing Aid, Hx Hearing Problem Opthamlomology History: Reports: Hx Contacts or Glasses Denies: Hx Cataracts, Hx Vision Problem Neurological History: Reports: 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 prostate cancer - 1995 Hx Chemotherapy: No Hx Radiation Therapy: Yes - VOCAL CHORD POLYPS - Surgical History Surgery Procedure, Year, and Place: PROSTATECTOMY 1995,. TONSILLECTOMY as a child. Vocal cord polyps removed 1980 Hx Anesthesia Reactions: No - Immunization History Date of Tetanus Vaccine: PT STATES UNSURE Date of Influenza Vaccine: NONE Infectious Disease History: No Infectious Disease History: Denies: Traveled Outside the [place] in Last 30 Days - Family History Known Family History: Positive: Cardiac Disease - father: CAD - Social History Alcohol Use: Occasionally Alcohol Amount: 1-2 beers occasionally Hx Substance Use: No Substance Use Type: Reports: None Hx Tobacco Use: No Smoking Status (MU): Never Smoked Tobacco Review of Systems Negative: Fever Positive: Chest Pain Positive: Edema All Other Systems Reviewed And Are Negative: Yes Physical Exam - Summary Physical Exam Summary: GENERAL: Patient is a well-developed and nourished male who is lying comfortable in the stretcher. Patient is not in any acute respiratory distress. HEAD AND FACE: Normocephalic EYES: PERRLA, EOMI x 2. EARS: Hearing grossly intact. MOUTH: Oropharynx within normal limits. NECK: Supple, trachea is midline, no adenopathy, no JVD, no carotid bruit. CHEST: Symmetric, no tenderness at palpation LUNGS: Clear to auscultation bilaterally. Mild wheezing. No crackles. CVS: Regular rate and rhythm, S1 and S2 present, no murmurs or gallops appreciated. ABDOMEN: Soft, non-tender. Bowel sounds are normal. No abdominal abnormal pulsations. EXTREMITIES: Full ROM in all major joints, no edema, no cyanosis or clubbing. NEURO: Alert and oriented x 3. No acute neurological deficits. Speech is normal and follows commands. SKIN: Dry and warm Triage Information Reviewed: Yes Vital Signs On Initial Exam: Initial Vitals Temp Pulse Resp BP Pulse Ox 97.8 F 92 18 116/65 100 01/13/19 11:39 01/13/19 11:39 01/13/19 11:39 01/13/19 11:39 01/13/19 11:39 Vital Signs Reviewed: Yes Diagnostics - Vital Signs Vital Signs Temp Pulse Resp BP Pulse Ox 01/13/19 11:39 97.8 F 92 18 116/65 100 - Laboratory Result Diagrams: 01/14/19 05:49 01/14/19 05:49 Lab Statement: Any lab studies that have been ordered have been reviewed, and results considered in the medical decision making process. - Radiology Chest x-ray Radiology Interpretation Completed By: Radiologist Summary of Radiographic Findings: No active cardiopulmonary disease. ED physician has reviewed this report. - EKG 1142 Cardiac Rate: NL - 87bpm EKG Rhythm: Atrial Fibrillation ST Segment: Normal Ectopy: None Summary of EKG Findings: V-paced complexes. Chest Pain Course/Dx - Course Course Of Treatment: The pt is an 78 y/o M presenting to the ED with a chief complaint onset about 40 minutes ago rated at 4/10. He originally described it as heartburn but it moved up to his anterior L chest and his neck. The discomfort has somewhat subsided. He has had previous heart testing done which showed issues in the lower two chambers of his heart. 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 An EKG shows 87bpm atrial fibrillation with V-paced complexes. A chest x-ray shows no active cardiopulmonary disease. - Diagnoses Provider Diagnoses: Chest pain Discharge - Sign-Out/Discharge Documenting (check all that apply): Patient Departure All imaging exams completed and their final reports reviewed: Yes Patient Received Moderate/Deep Sedation with Procedure: No - Discharge Plan Condition: Stable Disposition: ADMITTED TO [facility] - Billing Disposition and Condition Condition: STABLE Disposition: Admitted to [facility] - Attestation Statements Document Initiated by Scribe: Yes Documenting Scribe: Florina Rivas Provider For Whom Scribe is Documenting (Include Credential): Ann Mclaughlin MD. Scribe Attestation: I, Florina Rivas, scribed for Ann Mclaughlin MD. on 01/15/19 at 1038. Scribe Documentation Reviewed: Yes Provider Attestation: The documentation as recorded by the scribe, Florina Rivas accurately reflects the service I personally performed and the decisions made by me, Jovan Mclaughlin MD. Status of Scribe Document: Viewed Consult Consult: 1336 - Spoke with Dr. Syed about the pt's present condition who will be the accepting physician to [facility] [place] [facility] [place]
[2019-01-13] MEDS ORDERED: Albuterol/Ipratropium NEB.SOL* Albuterol 2.5 MG/Ipratropium 0.5 MG 3 ML INH ONE (12:52)
[2019-01-13] MEDS: Aspirin 81 mg CHEW TAB* 81 MG TAB.CHEW PO SCH (13:08)
[2019-01-13 13:16] LABS: ABS Basophils 0 10^3/ul (0-0.2); ABS Eosinophils 0.2 10^3/ul (0-0.6); ABS Lymphocytes 0.8 10^3/ul (1.0-4.8); ABS Monocytes 0.7 10^3/ul (0-0.8); ABS Neutrophils 5.8 10^3/ul (1.5-7.7); ABS Nucleated RBC 0 10^3/ul; Eosinophil % 2.7 %; Hematocrit 39 % (42-52); Lymphocyte % 10.8 %; Mean Corpuscular HGB Conc 34 g/dl (31-36); Mean Corpuscular Hemoglobin 32 pg (27-31); Mean Corpuscular Volume 95 fL (80-94); Mean Platelet Volume 8.2 fL (7.4-10.4); Nucleated Red Blood Cells % 0; Platelet Count 191 10^3/ul (150-450); Red Blood Count 4.07 10^6/ul (4.00-5.40); Red Cell Distribution Width 15 % (10.5-15); White Blood Count 7.6 10^3/ul (3.5-10.8)
[2019-01-13 13:29] LABS: Activated Partial Thrombo Time 44.6 seconds (26.0-36.3); INR 3.15 (0.77-1.02)
[2019-01-13 13:34] LABS: Albumin 3.7 g/dL (3.2-5.2); Albumin/Globulin Ratio 1.4 (1-3); BUN/Creatinine Ratio 20.7 (8-20); Calcium 9.4 mg/dL (8.6-10.3); EGFR African American 73.3 (>60); EGFR Non-African American 60.6 (>60); Globulin 2.6 g/dL (2-4); Potassium 4.4 mmol/L (3.5-5.0); Total Bilirubin 1.4 mg/dL (0.2-1.0); Total Protein 6.3 g/dL (6.4-8.9)
[2019-01-13 13:35] LABS: Troponin I 0.01 ng/mL (<0.04)
[2019-01-13] MEDS ORDERED: Albuterol/Ipratropium NEB.SOL* Albuterol 2.5 MG/Ipratropium 0.5 MG 3 ML INH PRN (14:49)
[2019-01-13] MEDS ORDERED: Acetaminophen TAB* 325 MG PO PRN (14:49)
[2019-01-13] MEDS ORDERED: Docusate CAP* 100 MG PO PRN (14:52)
[2019-01-13] MEDS ORDERED: Atorvastatin* 10 MG TAB PO SCH (18:00)
[2019-01-13] MEDS ORDERED: Warfarin TAB(*) 2.5 MG PO SCH (18:00)
--- NOTE | 2019-01-13 20:55 | HP ---
CC: Dr. Websetr; Dr. Walker * MEDICINE HISTORY AND PHYSICAL: DATE OF ADMISSION: 01/13/19 PROVIDER: Morelia Field NP. ATTENDING PHYSICIAN: Dr. Syed * (dictated by Morelia Field NP). PRIMARY CARE PROVIDER: Dr. Webster. DISTRIBUTION DESIGNER: Dr. Walker. CHIEF COMPLAINT: Chest pain. HISTORY OF PRESENT ILLNESS: Mr. Milligan is an 78-year-old male, who came in today with concern for chest pain that started around 10 o'clock this morning. He states that he was lying down. He felt a burning sensation in the left side of his chest that extended up to his neck. He had some accompanying nausea. He was concerned and came to the ER with his via car, took [address] here and reports cessation of his chest pain following the third nitroglycerin that was given here in the ER. He reports that he recently had a Holter monitor from 01/11/19 through , 01/12/19, this week, and was told that he had some abnormalities seen in his lower 2 chambers. He reports that he had significant periods of shortness of breath, most notably on 's Day where he had a period of 2 to 4 hours of shortness of breath that then resolved. He states that he was put on the Holter monitor to help Dr. Walker adjust his digoxin. He is currently without chest pain and would like to go home. His troponin was negative. Here in the ER, he also received nitroglycerin as previously indicated as well as aspirin. PAST MEDICAL HISTORY: Includes: 1. Chronic atrial fibrillation, on Coumadin. 2. Prostate cancer. 3. History of transient global amnesia. 4. GERD. 5. History of subarachnoid hemorrhage. 6. Peripheral neuropathy to lower extremities. HOME MEDICATIONS: 1. Glucosamine chondroitin supplement 2 capsules daily. 2. CoQ10 200 mg daily. 3. Viagra 50 mg daily p.r.n. 4. Potassium chloride 20 mEq daily. 5. Zinc gluconate 50 mg daily. 6. Docusate 100 mg daily p.r.n. 7. Vitamin B12 1000 mcg q.a.m. 8. Vitamin C 500 mg daily. 9. Warfarin 2.5 mg daily. 10. Rosuvastatin 5 mg q.p.m. 11. Nitroglycerin 0.4 mg sublingual q.5 minutes p.r.n. 12. Metoprolol succinate XL 12.5 mg q.a.m. 13. Digoxin 0.125 mg daily. 14. Cholecalciferol 1000 units daily with meal. 15. Pantoprazole 40 q.a.m. 16. Aspirin 81 mg daily with meals. ALLERGIES: No known allergies. FAMILY HISTORY: He reports a mother who had a history of COPD and a father who had a history of cancer, unknown. SOCIAL HISTORY: He denies tobacco use, current or previous. He reports that he has a glass of wine daily every night. 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 He is not , but he has a significant other, who is accompanying him. His surrogate decision-maker is his daughter, Desiree. REVIEW OF SYSTEMS: A 12-point review of systems was completed. All pertinent positives and negatives are as per HPI. All those not mentioned are negative. Of note, he did disclose that he had some left-sided flank pain that is tender with palpation that he thinks is secondary to shoveling. PHYSICAL EXAMINATION GENERAL: This is an 78-year-old male, appears younger than stated age, very pleasant, interactive, in no acute distress. VITAL SIGNS: Temperature 97.8, pulse rate 74, respiratory rate 16, blood pressure 99/68, and O2 saturation is 96% on room air. HEENT: Head is atraumatic, normocephalic. Face is symmetrical. Pupils are equal and round. Extraocular movements are intact. Oral mucosa is moist. There is no oropharyngeal erythema or exudate. NECK: Supple. No lymphadenopathy appreciated. There is no JVD noted. There are no carotid bruits. CHEST: There is tenderness with palpation to the left chest wall extending into the axilla. Lungs are clear to auscultation bilaterally. I do not appreciate any wheezing or rales. CARDIAC: Irregularly irregular rate and rhythm. No murmurs, gallops or rubs appreciated. There is trace peripheral edema is noted. The distal pulses are present and palpable at 2+. ABDOMEN: Soft, nontender, nondistended with normoactive bowel sounds. There is no hepatosplenomegaly. MUSCULOSKELETAL: There is no clubbing or cyanosis. There is active full range of motion at all joints. SKIN: Appears grossly intact. NEURO: He is alert and oriented x3, in no focal deficit. Cranial nerves II through XII are grossly intact. Speech is clear and fluent. PSYCH: Affect is appropriate. DIAGNOSTIC STUDIES/LAB DATA: CBC: WBC 7.6, hemoglobin 13.0, hematocrit 39. INR is 3.15. CMP: Sodium 139, potassium 4.4, chloride 104, carbon dioxide 30, BUN 24, creatinine 1.16, glucose 128, lactic acid 1.2, calcium 9.4, magnesium 2.0, total bilirubin 1.4, AST 185, ALT 135, alk phos 150, troponin 0.01, BNP 202 , total protein 6.3. Chest x-ray shows no active cardiopulmonary disease. EKG shows atrial fibrillation, rate around 87 with PVCs noted. Old medical records and outside medical records were reviewed. Of note, I did review the Holter monitor report with the on-call inner layer scrubber tender, who reports that the patient was shown to have atrial fibrillation and extensive PVCs. ASSESSMENT AND PLAN: This is an 78-year-old gentleman, who presents today with concern for chest pain. He does have a history as noted for chronic atrial fibrillation. He will be admitted under observation for the followin. Chest pain: Again, he did recently have Holter monitor placed this week. It did show that he had multiple PVCs as well as chronic atrial fibrillation. He does also have ICD and pacemaker. Again, I have briefly reviewed the case with the on- call inner layer scrubber tender, who agrees with the recommendation to rule out the patient for acute coronary syndrome. Though Mr. Milligan was initially resistant to staying, he did agree to an overnight observation admission with further monitoring of his troponins and telemetry. We will repeat EKGs. He is currently comfortable without any chest pain; there is some reproducible pain that may be secondary to recent shoveling. We will continue his home regimen of digoxin and metoprolol succinate, and monitor his vitals carefully. We will continue his warfarin also for his chronic atrial fibrillation. 2. History of atrial fibrillation: Again, continue home regimen of digoxin, metoprolol, and warfarin. 3. Elevated LFTs. The patient has been noticed to have elevated LFTs chronically, although they are more so than usual. We will follow this again tomorrow as well as get a liver ultrasound. He has no right sided abdominal complaints or abdominal pain or nausea currently. Continue to follow. 4. History of gastroesophageal reflux disease: Continue pantoprazole. 5. FEN: He is ordered a heart healthy diet. He has requested that he be allowed to have decaf coffee, which is reasonable. He is currently stable. 6. DVT prophylaxis: Continue on warfarin. He is currently therapeutic. We will check his INR again tomorrow. 7. Disposition: He is an OBV admit with anticipated discharge to home. 8. Code status: He is a full code. TIME SPENT: Approximately 60 minutes was spent on this admission with more than half that time spent [id number] and obtaining history and physical, performing physical examination, and reviewing the plan of care. Plan of care was also reviewed with my attending, Dr. Shay Syed, who is in agreement. MORELIA FIELD, TOM [id number]/[facility]PS #: [id number] DAKSHA
[2019-01-14 06:26] LABS: INR 3.19 (0.77-1.02)
[2019-01-14 06:36] LABS: Albumin 3.3 g/dL (3.2-5.2); Albumin/Globulin Ratio 1.2 (1-3); BUN/Creatinine Ratio 19.6 (8-20); Calcium 9.1 mg/dL (8.6-10.3); EGFR African American 90.1 (>60); EGFR Non-African American 74.5 (>60); Globulin 2.7 g/dL (2-4); Potassium 3.8 mmol/L (3.5-5.0); Total Bilirubin 1.8 mg/dL (0.2-1.0)
[2019-01-14 06:37] LABS: Troponin I 0.01 ng/mL (<0.04)
[2019-01-14 06:48] LABS: ABS Basophils 0 10^3/ul (0-0.2); ABS Eosinophils 0.3 10^3/ul (0-0.6); ABS Monocytes 0.6 10^3/ul (0-0.8); ABS Neutrophils 3.5 10^3/ul (1.5-7.7); ABS Nucleated RBC 0 10^3/ul; Eosinophil % 5.1 %; Hematocrit 38 % (42-52); Hemoglobin 12.7 g/dl (14.0-18.0); Mean Corpuscular HGB Conc 34 g/dl (31-36); Mean Corpuscular Hemoglobin 32 pg (27-31); Mean Corpuscular Volume 94 fL (80-94); Nucleated Red Blood Cells % 0.1; Platelet Count 178 10^3/ul (150-450); Red Blood Count 3.99 10^6/ul (4.00-5.40); Red Cell Distribution Width 15 % (10.5-15); White Blood Count 5.4 10^3/ul (3.5-10.8)
[2019-01-14] MEDS ORDERED: Cholecalciferol TAB* 1000 UNITS PO SCH (08:30)
[2019-01-14] MEDS ORDERED: Aspirin EC TAB* 81 MG TAB.EC PO SCH (08:30)
[2019-01-14] MEDS ORDERED: [UNRECOGNIZED DRUG - OTHER] PO SCH (09:00)
[2019-01-14] MEDS ORDERED: [UNRECOGNIZED DRUG - MIXTURE] PO SCH (09:00)
[2019-01-14] MEDS ORDERED: Pantoprazole TAB * 40 MG TAB PO SCH (09:00)
[2019-01-14] MEDS ORDERED: Metoprolol Succinate XL TAB* 25 MG PO SCH (09:00)
[2019-01-14] MEDS ORDERED: Ascorbic Acid TAB* 500 MG PO SCH (09:00)
[2019-01-14] MEDS ORDERED: Potassium Chlor TAB* 20 MEQ TAB.ER PO SCH (09:00)
[2019-01-14] MEDS ORDERED: Digoxin TAB* 0.125 MG PO SCH (09:00)
[2019-01-14] MEDS ORDERED: Cyanocobalamin TAB* 500 MCG PO SCH (09:00)
[2019-01-14 09:02] VITALS: BP 123/75
[2019-01-14] MEDS: Aspirin 81 mg CHEW TAB* 81 MG TAB.CHEW PO SCH (10:57)
--- NOTE | 2019-01-15 01:23 | DS ---
DISCHARGE SUMMARY: DATE OF ADMISSION: 01/13/19 DATE OF DISCHARGE: 01/14/19 PRIMARY DIAGNOSIS: Chest pain. SECONDARY DIAGNOSES: 1. Chronic atrial fibrillation, on Coumadin. 2. Prostate cancer. 3. Transient ischemic attack. 4. Gastroesophageal reflux disease. 5. Subarachnoid hemorrhage. 6. Peripheral neuropathy to lower extremities. HOSPITAL COURSE: An 78-year-old male came into the hospital for evaluation of chest pain, described as burning sensation on the left side of his chest that extended to his neck with some accompanying n ausea. The patient also recently had a Holter monitor from 01/11/19 to 01/12/19 and reports some patience rtness of breath that he had. The patient was noted to have multiple PVCs and chronic atrial fibrill ation. He has an ICD and pacemaker. Initially, the patient [facility], then decided to stay, had serial troponins x3, noted to be negative. T he patient at this time wants to go home. The patient also has been chest pain-free. The patient ad vised to follow up with his employee benefits director next week for further discretion on if he needs stress test. The patient also advised to come back to the hospital if he develops any symptoms of chest pain or s hortness of breath. A stress test cannot be performed over the weekend as well. The patient well aw are of his symptoms and assures that he will come back if he has any recurrent symptoms. At this ricky e, the patient will follow up with his employee benefits director on Wednesday to follow up on the Holter reading and further evaluation. Vitals and labs noted to be stable at the time of discharge. Temperature 98.7, h eart rate 71, respiratory rate 16, oxygen saturation 94%, blood pressure 123/75. Labs: WBC 5.4, hem oglobin 12.7, hematocrit 28, platelets noted to be 178. PHYSICAL EXAMINATION: HEENT: NCAT. Heart: S1, S2 present. Irregularly irregular at the time of e xam. Lungs: Clear to auscultation bilaterally. Abdomen: Soft. Extremities: No edema. Neuro: Al ert and oriented. Please note no changes to the patient's home medications have been made at this time. DISCHARGE MEDICATIONS: 1. Zinc. 2. Warfarin 2.5 mg p.o. daily. 3. Co-enzyme Q10. 4. Rosuvastatin 5 mg p.o. q.p.m. 5. Potassium chloride 20 mEq p.o. daily. 6. Pantoprazole 40 mg p.o. q.a.m. 7. Nitroglycerin 0.4 sublingual q.5 minutes p.r.n. 8. Metoprolol 12.5 mg p.o. q.a.m. 9. Glucosamine. 10. Docusate 100 mg p.o. daily p.r.n. 11. Digoxin 0.125 mg p.o. daily. 12. Vitamin B12. 13. Vitamin B. 14. Aspirin 81 mg. 15. Ascorbic acid 500 mg p.o. daily. FOLLOWUP: 1. The patient to follow up with his PCP in a week. 2. The patient to follow up with Cardiology within the week to make a plan. TIME SPENT: Total time spent on discharge is equal to 35 minutes. [id number]/[facility] #: [id number]
== END 2019-01-14 12:00 | disposition home or self-care (01) ==
LOC: ED 11:36 → MEDTELE 14:48
PROVIDERS: ADMIT Student in an Organized Health Care Education/Training Program; ATTEND Internal Medicine
DX: R07.9 Chest pain, unspecified (principal); I48.2 Chronic atrial fibrillation; Z79.01 Long term (current) use of anticoagulants; C61 Malignant neoplasm of prostate; G45.9 Transient cerebral ischemic attack, unspecified; K21.9 Gastro-esophageal reflux disease without esophagitis; I60.9 Nontraumatic subarachnoid hemorrhage, unspecified; G62.9 Polyneuropathy, unspecified
CPT/HCPCS: 36415; 71045; 76705; 80053; 83605; 83735; 83880; 84484; 85025; 85610; 85730; 93005; 99284; A9270-GY; G0378